=== PATIENT | female | born 1930 | race Caucasian/White ===

== ENCOUNTER 2017-04-19 20:38 | Inpatient (IN) | payer MEDICARE, OTHER ==
[~2017-04-19] VITALS: Ht 160 cm; Wt 67.5 kg
[~2017-04-19 20:38] MED LIST: AMLO-147 PO; ISOS20TA19 PO; LEVE-5 PO; LOSA50TA6 PO; MEMA10TA16 PO; RIVA20TA5 PO
--- NOTE | 2017-04-20 00:31 | ERD ---
ER Documentation Chief Complaint Chief Complaint ABNORMAL LABW-HGB HPI The patient is a 86-year-old female, presenting to the ER because of low hemoglobin that was drawn this morning. Sh was contacted by her physician who asked her to go to the ER. She has fell generalized weakness for the last 2 weeks, was otherwise she went to see her doctor this morning Dr Ahumada. She has had dark stool for the last 2 weeks intermittently, denies any hematemesis. She denies syncope, near syncope, neck pain, chest pain, dyspnea, dysuria, diarrhea. She does not smoke nor drink, use 2 L nasal cannula at night Past medical history: Left CVA, dementia, hypertension, atrial fibrillation, history of CVA Past surgical history: Cholecystectomy ROS All systems reviewed and are negative except as per history of present illness. Medications Home Meds Reported Medications Rivaroxaban* (Xarelto*) 20 Mg Tablet, 20 MG PO QHS, TAB 06/22/15 Levetiracetam* (Keppra*) 500 Mg Tablet, 500 MG PO BID, TAB GIVE AT 9AM AND 5PM 06/22/15 Isosorbide Dinitrate* (Isosorbide Dinitrate*) 20 Mg Tablet, 20 MG PO BID, TAB 06/22/15 Memantine* (Namenda*) 10 Mg Tablet, 10 MG PO DAILY, #30 TAB 06/22/15 Amlodipine Besylate* (Amlodipine Besylate*) 10 Mg Tablet, 10 MG PO DAILY, #30 TAB 06/22/15 Losartan Potassium* (Losartan Potassium*) 50 Mg Tablet, 50 MG PO DAILY, TAB 06/22/15 Allergies Allergies: Coded Allergies: hydrocortisone (Verified Allergy, Unknown, 06/22/15) Uncoded Allergies: HYDROCORTIZONE (Allergy, Unknown, 02/23/14) PMhx/Soc History of Surgery: Yes Anesthesia Reaction: Yes Hx Neurological Disorder: No Hx Respiratory Disorders: No Hx Cardiac Disorders: Yes Hx Psychiatric Problems: No Hx Miscellaneous Medical Probl: Yes Hx Alcohol Use: No Hx Substance Use: No Hx Tobacco Use: No Physical Exam Vitals Vital Signs Date Time Temp Pulse Resp B/P Pulse Ox O2 Delivery O2 Flow Rate FiO2 04/20/17 00:56 98.5 04/20/17 00:43 Nasal Cannula 2 04/20/17 00:43 97.4 91 20 114/51 95 Room Air 04/19/17 21:11 97.4 100 20 124/58 100 Physical Exam Const: No acute distress. Head: Atraumatic. Eyes: Normal Conjunctiva. ENT: Normal External Ears, Nose and Mouth. Neck: Full range of motion. No meningismus. Resp: Clear to auscultation bilaterally. Cardio: Irregularly irregular Abd: Soft, obese, normal bowel sounds, vague and diffuse abdominal tenderness Skin: No petechiae or rashes. Back: No midline or flank tenderness. Ext: Chronic skin discoloration, minimal edema Neur: Awake and alert. No focal deficit Psych: Normal Mood and Affect. Result Diagram: 04/20/175204/20/1752 Results 24 hrs Laboratory Tests Test 04/20/17 00:53 White Blood Count 6.110^3/ul Red Blood Count 1.3510^6/ul Hemoglobin 3.9g/dl Hematocrit 13.0% Mean Corpuscular Volume 96.3fl Mean Corpuscular Hemoglobin 28.9pg Mean Corpuscular Hemoglobin Concent 30.0g/dl Red Cell Distribution Width 14.3% Platelet Count 44494^3/UL Mean Platelet Volume 9.5fl Neutrophils % 56.3% Lymphocytes % 31.2% Monocytes % 11.7% Eosinophils % 0.5% Basophils % 0.0% Nucleated Red Blood Cells % 0.5/100WBC Neutrophils # 3.410^3/ul Lymphocytes # 1.910^3/ul Monocytes # 0.710^3/ul Eosinophils # 0.010^3/ul Basophils # 0.010^3/ul Nucleated Red Blood Cells # 0.010^3/ul Pathologist Review (Hematology) YES Prothrombin Time 25.2Sec Prothrombin Time Ratio 2.0 INR International Normalized Ratio 2.22 Activated Partial Thromboplast Time 41.7Sec Sodium Level 139mmol/L Potassium Level 4.5mmol/L Chloride Level 99mmol/L Carbon Dioxide Level 33mmol/L Anion Gap 12 Blood Urea Nitrogen 36mg/dl Creatinine 1.05mg/dl Glucose Level 149mg/dl Calcium Level 8.7mg/dl Total Bilirubin 0.2mg/dl Direct Bilirubin 0.00mg/dl Indirect Bilirubin 0.2mg/dl Aspartate Amino Transf (AST/SGOT) 46IU/L Alanine Aminotransferase (ALT/SGPT) 42IU/L Alkaline Phosphatase 68IU/L Troponin I 0.016ng/ml Total Protein 6.0g/dl Albumin 3.0g/dl Globulin 3.00g/dl Albumin/Globulin Ratio 1.00 Procedures/MDM Patient Name Elizabeth Alcazar Study Date 04/20/2017 1:21 AM Patient 1930 Accession No. [id number] Referring Physician Óscar Cabrera CLINICAL INDICATION: Abdominal pain. TECHNIQUE: CT scan of the abdomen and pelvis without contrast was performed on a multidetector high-resolution CT scanner. The patient was scanned without intravenous contrast. Coronal and sagittal reformatted images were obtained from the axial source images. Images were reviewed on a high-resolution PACS workstation. The total exam CTDI equals 22.94 mGy and the total exam DLP equals 1321.60 mGy-cm. DICOM images are available. One or more of the following dose reduction techniques were utilized: 1.) Automated exposure control 2.) Adjustment of the mA +/- kV according to patient's size 3.) Use of iterative reconstruction technique. COMPARISON: CT abdomen and pelvis dated 04/10/2013. FINDINGS: CT abdomen: Atelectasis at the right midaxillary posterior costophrenic angle. Otherwise, the lung bases are clear. The heart size is mildly enlarged, without pericardial thickening or effusion. The liver is normal in size and density without focal mass or intrahepatic biliary dilatation. The spleen is normal in size and homogeneous in density. The stomach is partially collapsed, but is grossly unremarkable. The pancreas as visualized is normal. The gallbladder and biliary tree are unremarkable and there is no evidence for biliary dilatation. The adrenal glands are symmetric and normal. 36 mm low attenuation lesion in the left kidney may represent a cyst or solid lesion, and attenuation is indeterminate. Recommend ultrasound examination for further evaluation to exclude nodular components or solid mass. This measured about [address] examination dated 04/10/2013. Findings most likely represent a cyst. Otherwise, the kidneys are symmetrically unremarkable as well. No renal calculus or obstructive uropathy or mass lesion is seen. The aorta is of normal caliber. Aortic vascular calcifications are present. There is no retroperitoneal lymphadenopathy. The celia hepatis region is clear. The bowel and mesentery, as visualized, are equally unremarkable. CT pelvis: The small bowel loops situated within the pelvis are unremarkable. The pelvic organs are normal. The pelvic sidewalls and inguinal regions are clear. The sigmoid colon and rectum are remarkable for sigmoid diverticulosis. No mass, lymphadenopathy, or free fluid is seen. No acute inflammation is seen. The surrounding osseous structures are remarkable for degenerative spondylosis of the spine. No osteolytic or osteoblastic lesion is detected. IMPRESSION: 1. 36 mm lesion in the left kidney may represent a nodular complex mass or solid mass, and differential considerations include a cystic structure. 2. Noncontrast attenuation of this lesion is indeterminate, and recommend ultrasound examination for further evaluation. 3. Atelectasis at the midaxillary and posterior right costophrenic angle. 4. Otherwise, no acute process in the abdomen and pelvis. RPTAT: UU Signed By: Ridge Mao Md 04/20/2017 1:56:29 AM EKG: Read by emergency physician Rate/Rhythm: Atrial Fibrillation 95 beats/min QRS, ST, T-waves: No ST elevation, nonspecific ST and T abnormality Impression: Abnormal EKG MEDICAL MAKING DECISION: The patient is a 86-year-old female, presenting with acute gastrointestinal bleeding, acute left renal mass. She was treated with 4 unit of packed red blood cell The differential diagnoses considered include but are not limited to gastritis, peptic ulcer disease, esophageal varices, Radha-Dent tear, carcinoma, polyp, hemorrhoid, fissure, diverticulosis, angiodysplasia. Critical Care: Time: 35 minutes excluding all billable procedures. Treatments/Evaluations: Close monitoring and treatment of unstable vital signs, cardiorespiratory, and neurologic status, while maintaining tight balance of fluid, respiratory, and cardiac interventions. Departure Diagnosis: Primary Impression: Acute GI bleeding Additional Impression: Left renal mass Condition: Serious Comments I discussed the findings with the patient. I discussed the patient with the on- call hospitalist Dr. Yang at 3 AM who was made aware of the lab, the treatment, the patient condition. The patient is admitted to [facility] Disclaimer: Inadvertent spelling and grammatical errors are likely due to EHR/ dictation software use and do not reflect on the overall quality of patient care. Also, please note that the electronic time recorded on this note does not necessarily reflect the actual time of the patient encounter. ÓSCAR CABRERA MD Apr 20, 2017 00:31
[2017-04-20 01:01] LABS: ABNORMAL IP MESSAGE 1; EOSINOPHILS % 0.5 % (0.0-7.0); LYMPHOCYTES # 1.9 10^3/ul (0.8-2.9); LYMPHOCYTES % 31.2 % (15.0-51.0); MEAN CORPUSCULAR HEMOGLOBIN 28.9 pg (29.0-33.0); MEAN CORPUSCULAR VOLUME 96.3 fl (82.0-101.0); MEAN PLATELET VOLUME 9.5 fl (7.4-10.4); MONOCYTE # 0.7 10^3/ul (0.3-0.9); MONOCYTES % 11.7 % (0.0-11.0); NEUTROPHIL # 3.4 10^3/ul (1.6-7.5); NEUTROPHILS % 56.3 % (39.0-77.0); NUCLEATED RED BLOOD CELLS% 0.5 /100WBC (0.0-0.0); PLATELET COUNT 174 10^3/UL (140-415); RED BLOOD COUNT 1.35 10^6/ul (4.20-5.40); RED CELL DISTRIBUTION WIDTH 14.3 % (11.5-14.5); WHITE BLOOD COUNT 6.1 10^3/ul (4.8-10.8)
[2017-04-20 01:14] LABS: HEMOGLOBIN 3.9 g/dl (12.0-16.0); POSITIVE DIFF @See below
[2017-04-20 01:16] LABS: PATH REVIEW? YES
[2017-04-20 01:21] LABS: BILIRUBIN,INDIRECT 0.2 mg/dl (0-1.1); BILIRUBIN,TOTAL 0.2 mg/dl (0.2-1.3); CALCIUM 8.7 mg/dl (8.4-10.2); CREATININE 1.05 mg/dl (0.44-1.00); POTASSIUM 4.5 mmol/L (3.5-5.1)
[2017-04-20 01:23] LABS: INR 2.22; PROTIME 25.2 Sec (11.9-14.9)
[2017-04-20 01:24] LABS: PARTIAL THROMBOPLASTIN TIME 41.7 Sec (25.0-35.0)
[2017-04-20 01:32] LABS: TROPONIN-I 0.016 ng/ml (0.00-0.12)
[2017-04-20 05:52] LABS: HEMATOCRIT 19.5 % (37.0-47.0)
[2017-04-20] MEDS ORDERED: NACL 0.9% 3 ML SYG IV SCH (06:00)
[2017-04-20] MEDS ORDERED: morphine 2 MG INJ IV PRN (06:00)
[2017-04-20] MEDS ORDERED: NITROGLYCERIN (SL) 0.4 MG TAB SL PRN (06:00)
[2017-04-20] MEDS ORDERED: ONDANSETRON 4 MG INJ IV PRN (06:00)
--- NOTE | 2017-04-20 06:54 | RADRPT ---
PROCEDURE: CT Abdomen and Pelvis without contrast. CLINICAL INDICATION: Abdominal pain. TECHNIQUE: CT scan of the abdomen and pelvis without contrast was performed on a multidetector hig h-resolution CT scanner. The patient was scanned without intravenous contrast. Coronal and sagittal reformatted images were obtained from the axial source images. Images were reviewed on a high-resol [employer] PACS workstation. The total exam CTDI equals 22.94 mGy and the total exam DLP equals 1321.60 m Gy-cm. DICOM images are available. One or more of the following dose reduction techniques were utilized: 1.) Automated exposure control 2.) Adjustment of the mA +/- kV according to patient's size 3.) Use of iterative reconstruction technique. COMPARISON: CT abdomen and pelvis dated 04/10/2013. FINDINGS: CT abdomen: Atelectasis at the right midaxillary posterior costophrenic angle. Otherwise, the lung bases are alexis ar. The heart size is mildly enlarged, without pericardial thickening or effusion. The liver is normal in size and density without focal mass or intrahepatic biliary dilatation. The spleen is normal in size and homogeneous in density. The stomach is partially collapsed, but is armond ssly unremarkable. The pancreas as visualized is normal. The gallbladder and biliary tree are unre markable and there is no evidence for biliary dilatation. The adrenal glands are symmetric and norm al. 36 mm low attenuation lesion in the left kidney may represent a cyst or solid lesion, and atten uation is indeterminate. Recommend ultrasound examination for further evaluation to exclude nodular components or solid mass. This measured about [address] examination dated 04/10/2013. Findings mos t likely represent a cyst. Otherwise, the kidneys are symmetrically unremarkable as well. No renal calculus or obstructive uropathy or mass lesion is seen. The aorta is of normal caliber. Aortic vascular calcifications are present. There is no retroperit garcia lymphadenopathy. The celia hepatis region is clear. The bowel and mesentery, as visualized, are equally unremarkable. CT pelvis: The small bowel loops situated within the pelvis are unremarkable. The pelvic organs are normal. T he pelvic sidewalls and inguinal regions are clear. The sigmoid colon and rectum are remarkable for sigmoid diverticulosis. No mass, lymphadenopathy, or free fluid is seen. No acute inflammation is seen. The surrounding osseous structures are remarkable for degenerative spondylosis of the spine. No ost eolytic or osteoblastic lesion is detected. IMPRESSION: 1. 36 mm lesion in the left kidney may represent a nodular complex mass or solid mass, and different ial considerations include a cystic structure. 2. Noncontrast attenuation of this lesion is indeterminate, and recommend ultrasound examination for further evaluation. 3. Atelectasis at the midaxillary and posterior right costophrenic angle. 4. Otherwise, no acute process in the abdomen and pelvis. RPTAT: UU Physician Wagner Date Time Electronically viewed and signed by Physician Wagner on 04/20/2017 01:56 RS/
--- NOTE | 2017-04-20 08:42 | HP ---
Date/Time of Note Date/Time of Note DATE: 04/20/17 TIME: 08:37 Assessment/Plan VTE Prophylaxis VTE Prophylaxis Intervention: SCD's Assessment/Plan Assessment/Plan ASSESSMENT 86-year-old female with a history of hypertension, seizure, dementia, CVA, A- fib on Xarelto with a 2 weeks history of dark stool was found to be severely anemic with a hemoglobin of 3.9. PLAN -Continue blood transfusion -Monitor H&H frequently -GI consult -Will obviously hold Xarelto -will keep n.p.o. with IV fluid. Switch some of her medications including antiseizure medication to IV HPI/ROS Admit Date/Time Admit Date/Time Hx of Present Illness This is an 86-year-old female with a history of hypertension, seizure, dementia , CVA, A-fib on Xarelto who presented to the ER after he was sent by PCP for anemia. Patient has been having dark stools for about 2 weeks. When she presented to the ER she was found to have a hemoglobin of 3.9 with MCV of 96. Her creatinine is 1.05, BUN 36, bicarb 33, INR 2.22 and PTT of 41. Her initial vitals were blood pressure of 124/58, heart rate 100, respiratory 22, oxygen saturation 100% and she was afebrile. PMH/Family/Social Social History Smoking Status: Never smoker Exam/Review of Systems Vital Signs Vitals Vital Signs Date Time Temp Pulse Resp B/P Pulse Ox O2 Delivery O2 Flow Rate FiO2 04/20/17 06:30 98.1 80 18 111/62 98 Room Air 04/20/17 00:43 2 Exam Constitutional: other (apears weak) Head: atraumatic, normocephalic Eyes: PERRL Respiratory: clear to auscultation Cardiovascular: nl pulses, regular rate and rhythm Gastrointestinal: soft, tender Extremities: normal pulses Labs Result Diagram: 04/20/17 0513 04/20/17 0053 Medications Medications Current Medications Dextrose/Sodium Chloride (D5-1/2ns) 1,000 ml @ 100 mls/hr Q10H IV ; Start 04/20 at 05:49 Ondansetron HCl (Zofran Inj) 4 mg Q6H PRN IV NAUSEA AND/OR VOMITING; Start 04/20/17 at 06:00 Nitroglycerin (Nitroglycerin (Sl Tab) 0.4 Mg) 1 tab Q5M PRN SL CHEST PAIN; Start 04/20/17 at 06:00 Morphine Sulfate (morphine) 2 mg Q4H PRN IV PAIN LEVEL 7-10; Start 04/20/17 at 06:00 ALBIN ALEXANDRA MD Apr 20, 2017 08:42
[2017-04-20 10:35] VITALS: TEMP 98.1
[2017-04-20] MEDS ORDERED: LOSA1TAB28 PO (10:58)
[2017-04-20] MEDS ORDERED: VALS160T20 PO (10:59)
[2017-04-20 11:59] LABS: BASOPHILS % 0.4 % (0.0-2.0); EOSINOPHILS % 0.4 % (0.0-7.0); HEMATOCRIT 23.9 % (37.0-47.0); HEMOGLOBIN 7.9 g/dl (12.0-16.0); LYMPHOCYTES # 1.5 10^3/ul (0.8-2.9); LYMPHOCYTES % 26.5 % (15.0-51.0); MEAN CORPUSCULAR HEMOGLOBIN 28.6 pg (29.0-33.0); MEAN CORPUSCULAR HGB CONC 33.1 g/dl (32.0-37.0); MEAN CORPUSCULAR VOLUME 86.6 fl (82.0-101.0); MEAN PLATELET VOLUME 9.3 fl (7.4-10.4); MONOCYTE # 0.9 10^3/ul (0.3-0.9); MONOCYTES % 15.5 % (0.0-11.0); NEUTROPHIL # 3.1 10^3/ul (1.6-7.5); NEUTROPHILS % 56.5 % (39.0-77.0); NUCLEATED RED BLOOD CELLS # 0.1 10^3/ul (0.0-0.0); NUCLEATED RED BLOOD CELLS% 0.9 /100WBC (0.0-0.0); PLATELET COUNT 140 10^3/UL (140-415); RED BLOOD COUNT 2.76 10^6/ul (4.20-5.40); RED CELL DISTRIBUTION WIDTH 18.4 % (11.5-14.5); WHITE BLOOD COUNT 5.5 10^3/ul (4.8-10.8)
[2017-04-20 12:23] LABS: IRON 281 ug/dl (35-150)
[2017-04-20 12:25] LABS: ALBUMIN/GLOBULIN RATIO 1.03; BILIRUBIN,INDIRECT 2.1 mg/dl (0-1.1); BILIRUBIN,TOTAL 2.1 mg/dl (0.2-1.3); CALCIUM 8.3 mg/dl (8.4-10.2); CREATININE 1.05 mg/dl (0.44-1.00); MAGNESIUM 2.3 mg/dl (1.7-2.5); POTASSIUM 4.7 mmol/L (3.5-5.1); TOTAL PROTEIN 5.9 g/dl (6.1-8.1)
[2017-04-20 12:33] LABS: TOTAL IRON BINDING CAPACITY 353 ug/dl (241-421)
[2017-04-20] MEDS: DEXTROSE 5%-0.45% NACL 1,000 ML IV SCH ×3 (12:51→23:29)
[2017-04-20 12:57] LABS: FERRITIN 16.7 ng/ml (11.1-264.0)
--- NOTE | 2017-04-20 16:48 | CONS ---
Date/Time of Note Date/Time of Note DATE: 04/20/17 TIME: 16:14 Assessment/Plan Assessment/Plan Chief Complaint/Hosp Course Assessment: Anemia High INR Rule out GI bleed Atrial fibrillation Hypertension Dementia History of CVA Plan: EGD tomorrow Hold Xarelto Start Protonix 40 mg BID Monitor H&H transfuse for hemoglobin less than 7.5 2 units of FFP Consultation performed in collaboration with Subjective: Patient is asleep in bed, responsive to stimulation, grimacing on palpation of the stomach. Daughter at the bedside interviewed and explained the plan of treatment. Risks and benefits of procedure have been explained. Patient's daughter is agreeable to the procedure. The laboratory data has been reviewed. CT of the abdomen was positive for diverticulosis, listhesis, and right renal cyst. Current hemoglobin is 7.9. Will continue close monitoring. Nursing staff was updated on the treatment plan. Problems: Consultation Date/Type/Reason Admit Date/Time Date of Consultation: Apr 20, 2017 Type of Consultation: GI Reason for Consultation Sever anemia Hx of Present Illness This is an 86-year-old [place] Citizen female presents in ED with hemoglobin of 3.9. History obtained from her daughter who is at the bedside she seems to be a reliable historian. According to daughter her mom has been feeling progressively weak for the past 2 weeks. In addition she has been having dark green stools. Patient is currently on hospice with a nurse visiting every day. Upon daughter's request blood was collected along with the stool sample for testing by hospice nurse. Hemoglobin was found to be critically low and the patient was brought to ED. her medical history is significant for chronic A. fib , hypertension, dementia and history of massive stroke in 2013 that left her with left sided weakness. Patient has a history of chronic constipation and severe hemorrhoids. Patient had cholecystectomy in 2009 and colonoscopy with polypectomy the same year. The plan is to do an endoscopy to evaluate for upper GI bleeding. Will hold Xarelto, and recheck INR tomorrow. Plan EGD for tomorrow. Genitourinary: no complaints (See HPI) Past Medical History History of CVA, hypertension, dementia, A. fib, hemorrhoids Past Surgical History Laparoscopic cholecystectomy 2009, right wrist ORIF, cataract surgery, surgery for varicose veins Family History Significant Family History: heart disease (Mom and sister had CVA) Social History Lives with daughter Alcohol Use: none Smoking Status: Never smoker Drug Use: none Exam/Review of Systems Vital Signs Vitals Vital Signs Date Time Temp Pulse Resp B/P Pulse Ox O2 Delivery O2 Flow Rate FiO2 04/20/17 14:04 75 14 107/66 99 Nasal Cannula 2.0 04/20/17 10:35 98.1 Exam PHYSICAL EXAMINATION: GENERAL: Well developed, well nourished, alert & oriented x 3, in no acute distress SKIN: No lesions, no stigmata chronic liver disease, no evidence of bleeding diathesis, bronze colored skin below the knees bilaterally LYMPHATIC: No palpable lymphadenopathy. HEAD: Normocephalic, atraumatic, no tenderness. EYES: Pupils equal reactive to light and accommodation, full extraocular movements, sclera clear, non-icteric, no discharge. EARS/NOSE AND THROAT: Ears normal, nose normal, oropharynx normal, oral membranes well hydrated without lesions. NECK: Supple, no masses, thyroid normal, JVP within normal limits, carotids normal without bruits. CHEST: Inspection within normal limits. CARDIOVASCULAR: Heart: Regular rate and rhythm, no murmurs, gallops or rubs. Peripheral pulses present within normal limits, no cyanosis, clubbing or edemas. No pulsatile abdominal mass RESPIRATORY: Lungs clear to auscultation and percussion, no wheezing, no rubs GASTROINTESTINAL AND LIVER: Abdomen: Soft, mild generalized tenderness, mildly distended, no hernias, no masses, no organomegaly, no ascites, no guarding, no rebound tenderness, normoactive bowel sounds. Rectal: Deferred. GENITOURINARY: Female genitalia within normal limits.] EXTREMITIES: No cyanosis, clubbing or edema. Results Result Diagram: 04/20/17 1121 04/20/17 1121 Results 24 hrs Laboratory Tests Test 04/20/17 00:53 04/20/17 05:13 04/20/17 11:21 White Blood Count 6.1 # 5.5 Red Blood Count 1.35 #L 2.76 #L Hemoglobin 3.9 #*L 6.0 #*L 7.9 #L Hematocrit 13.0 #L 19.5 #L 23.9 #L Mean Corpuscular Volume 96.3 86.6 Mean Corpuscular Hemoglobin 28.9 L 28.6 L Mean Corpuscular Hemoglobin Concent 30.0 L 33.1 Red Cell Distribution Width 14.3 18.4 #H Platelet Count 174 140 Mean Platelet Volume 9.5 9.3 Neutrophils % 56.3 56.5 Lymphocytes % 31.2 26.5 Monocytes % 11.7 H 15.5 H Eosinophils % 0.5 0.4 Basophils % 0.0 0.4 Nucleated Red Blood Cells % 0.5 H 0.9 H Neutrophils # 3.4 3.1 Lymphocytes # 1.9 1.5 Monocytes # 0.7 0.9 Eosinophils # 0.0 0.0 Basophils # 0.0 0.0 Nucleated Red Blood Cells # 0.0 0.1 H Pathologist Review (Hematology) YES Prothrombin Time 25.2 H Prothrombin Time Ratio 2.0 INR International Normalized Ratio 2.22 Activated Partial Thromboplast Time 41.7 H Sodium Level 139 141 Potassium Level 4.5 4.7 Chloride Level 99 101 Carbon Dioxide Level 33 H 35 H Anion Gap 12 10 Blood Urea Nitrogen 36 H 36 H Creatinine 1.05 H 1.05 H Glucose Level 149 131 Calcium Level 8.7 8.3 L Total Bilirubin 0.2 2.1 H Direct Bilirubin 0.00 0.00 Indirect Bilirubin 0.2 2.1 H Aspartate Amino Transf (AST/SGOT) 46 50 H Alanine Aminotransferase (ALT/SGPT) 42 45 Alkaline Phosphatase 68 60 Troponin I 0.016 Total Protein 6.0 L 5.9 L Albumin 3.0 L 3.0 L Globulin 3.00 2.90 Albumin/Globulin Ratio 1.00 1.03 Magnesium Level 2.3 Iron Level 281 H Total Iron Binding Capacity 353 Percent Iron Saturation 80 H Ferritin 16.7 Medications Medications Current Medications Dextrose/Sodium Chloride (D5-1/2ns) 1,000 ml @ 100 mls/hr Q10H IV Last administered on 04/20/17t 12:51; Admin Dose 100 MLS/HR; Start 04/20/17 at 05:49 Ondansetron HCl (Zofran Inj) 4 mg Q6H PRN IV NAUSEA AND/OR VOMITING; Start 04/20/17 at 06:00 Nitroglycerin (Nitroglycerin (Sl Tab) 0.4 Mg) 1 tab Q5M PRN SL CHEST PAIN; Start 04/20/17 at 06:00 Morphine Sulfate (morphine) 2 mg Q4H PRN IV PAIN LEVEL 7-10; Start 04/20/17 at 06:00 Copies To: CC: CT BARNETT MD, ANASTASIA NP Apr 20, 2017 16:24
[2017-04-20] MEDS: PANTOPRAZOLE 40 MG INJ IV SCH ×2 (17:00→18:14)
[2017-04-20 17:17] LABS: PATH REVIEW CH
[2017-04-20 17:49] VITALS: BP 130/75; RESP 18
[2017-04-20 17:57] VITALS: Ht 160 cm; Wt 67.5 kg
[2017-04-20 18:01] VITALS: PULSE 75
[2017-04-20] MEDS ORDERED: INFLUENZA VIRUS VACCINE 0.5 ML (DISPENSING) IM* ONE (19:30)
[2017-04-20 20:00] VITALS: BP 117/79; RESP 18
[2017-04-20 20:20] VITALS: PULSE 84
[2017-04-21] VITALS (23 sets, daily range): BP systolic 108–163; BP diastolic 59–96; PULSE 74–97; RESP 16–21
[2017-04-21 07:33] LABS: BASOPHILS % 0.2 % (0.0-2.0); EOSINOPHILS # 0.1 10^3/ul (0.0-0.5); EOSINOPHILS % 1.1 % (0.0-7.0); HEMATOCRIT 24.6 % (37.0-47.0); HEMOGLOBIN 7.8 g/dl (12.0-16.0); LYMPHOCYTES % 34.9 % (15.0-51.0); MEAN CORPUSCULAR HEMOGLOBIN 27.9 pg (29.0-33.0); MEAN CORPUSCULAR HGB CONC 31.7 g/dl (32.0-37.0); MEAN CORPUSCULAR VOLUME 87.9 fl (82.0-101.0); MONOCYTE # 0.9 10^3/ul (0.3-0.9); MONOCYTES % 15.6 % (0.0-11.0); NEUTROPHIL # 2.7 10^3/ul (1.6-7.5); NEUTROPHILS % 47.8 % (39.0-77.0); NUCLEATED RED BLOOD CELLS # 0.1 10^3/ul (0.0-0.0); NUCLEATED RED BLOOD CELLS% 1.3 /100WBC (0.0-0.0); PLATELET COUNT 135 10^3/UL (140-415); RED CELL DISTRIBUTION WIDTH 18.6 % (11.5-14.5); WHITE BLOOD COUNT 5.6 10^3/ul (4.8-10.8)
[2017-04-21] MEDS: DEXTROSE 5%-0.45% NACL 1,000 ML IV SCH ×2 (07:37→21:49)
[2017-04-21 08:07] LABS: CALCIUM 8.2 mg/dl (8.4-10.2); CREATININE 0.92 mg/dl (0.44-1.00); MAGNESIUM 2.1 mg/dl (1.7-2.5); PHOSPHORUS 3.2 mg/dl (2.5-4.9); POTASSIUM 3.9 mmol/L (3.5-5.1)
[2017-04-21] MEDS: PANTOPRAZOLE 40 MG INJ IV SCH ×2 (10:00→21:30)
--- NOTE | 2017-04-21 12:33 | HPN ---
Date/Time of Note Date/Time of Note DATE: 04/21/17 TIME: 12:33 Interval H&P Admission Note Pt. seen H&P reviewed: No system changes CT BARNETT MD Apr 21, 2017 12:33
[2017-04-21] MEDS ORDERED: MIDAZOLAM 1 MG/ML 2 ML INJ ONE (12:40)
[2017-04-21] MEDS ORDERED: PROPOFOL 20 ML ONE (12:40)
[2017-04-21] MEDS ORDERED: LIDOCAINE 2% (SDV) 5 ML INJ ONE (12:40)
[2017-04-21] MEDS ORDERED: FLUMAZENIL 0.5 MG INJ ONE (12:49)
--- NOTE | 2017-04-21 12:57 | OPPN ---
Date/Time of Note Date/Time of Note DATE: 04/21/17 TIME: 12:52 Proc Note GI Procedure Date 04/21/17 Indication: other (Anemia) Pre-procedure Diagnosis Anemia Post-procedure Diagnosis Impression: Moderate distal esophagitis. Moderate gastritis. Limited biopsies obtained to rule out H. pylori infection. Otherwise negative EGD Plan: PPI therapy Monitor H&H, PT and PTT Gently prepare for colonoscopy on Sunday . Procedure Performed: Endoscopy (Biopsies) Surgeon CT BRANETT MD See signature line Station Mechanic none Anesthesia Type: MAC Anesthesiologist: SEAMUS ACE DO Tourniquet Time none EBL none Transfusion required none Biopsy 1: Gastric antrum Grafts/Implants none Tubes/Drains none Complication(s) none Disposition: PACU Procedure Description After informed consent, with the patient/relatives understanding the procedure, its indications, potential risks and complications, including but not limited to : allergic reaction, bleeding, perforation or infection, and after all pertinent questions were answered to the patients satisfaction, the patient/ relatives signed witnessed informed consent. Following this, premedication was administered slowly IV push under careful cardiovascular and respiratory monitoring with pulse oximetry, automatic blood pressure, and environmental monitoring specialist. Once the sedative effect was achieved the patient was place in the left lateral decubitus, the panendoscope was introduced and advanced under visual control. Careful examination of the upper gastrointestinal tract, both on insertion as well as withdrawal of the instrument disclosing the following findings: ESOPHAGUS: the mucosa of the entire esophagus was carefully examined and showed the following findings: There is moderate erythema of the mucosa at the esophagogastric junction. Otherwise the mucosa appears within normal limits. There is no evidence of varices, neoplasm, or stricture. No Hiatal Hernia identified. STOMACH: Upon entrance to the stomach air was insufflated, the gastric zarate distended normally. The mucosa of the fundus, body and antrum of the stomach was carefully examined both head-on and on retroflexion, and showed the following findings: There is moderate erythema and edema the mucosa of the body and antrum of the stomach. No bleeding sites identified. Single biopsy was obtained to rule out H. pylori infection. Otherwise the mucosa appears within normal limits with no abnormalities. There is no evidence of ulcers or neoplasm. PYLORUS: The pylorus was carefully examined and showed the following findings: the pylorus appears patent and within normal limits, with no evidence of gastric outlet obstruction. DUODENUM: The duodenal mucosa was carefully examined in the duodenal bulb as well as the second portion of the duodenum and showed the following findings: the mucosa appears unremarkable with no evidence of duodenitis, ulcer or neoplasm. Copies To: CC: CT BARNETT MD, MORDO MD Apr 21, 2017 12:57
--- NOTE | 2017-04-21 14:14 | PN ---
Date/Time of Note Date/Time of Note DATE: 04/21/17 TIME: 14:08 Assessment/Plan VTE Prophylaxis VTE Prophylaxis Intervention: SCD's Lines/Catheters IV Catheter Type (from Nrsg): Peripheral IV Assessment/Plan Chief Complaint/Hosp Course 1. Severe anemia secondary to GI bleed Status post 4 units packed red blood cells GI consultation appreciated, EGD today showed moderate distal esophagitis and gastritis, plan is to continue PPI and prepare for colonoscopy Sunday Continue to hold home Xarelto 2. Suprapubic pain secondary to bladder distention from likely neurogenic bladder Servin catheter to be placed 3. History of A. fib Hold Xarelto 4. Dementia Hold home p.o. meds 5. History of seizures Continue home Keppra but will be given as an IV 6. History of hypertension Hold home meds secondary to hypotension Prophylaxis: SCDs Problems: Subjective 24 Hr Interval Summary Constitutional: disoriented Exam/Review of Systems Vital Signs Vitals Vital Signs Date Time Temp Pulse Resp B/P Pulse Ox O2 Delivery O2 Flow Rate FiO2 04/21/17 13:45 78 17 109/96 99 Nasal Cannula 04/21/17 13:01 98.2 04/21/17 12:17 3.0 Intake and Output 04/20/17 04/20/17 04/21/17 15:00 23:00 07:00 Intake Total 1400 ml 240 ml Output Total 200 ml Balance 1200 ml 240 ml Exam Constitutional: distress Psych: confusion Respiratory: clear to auscultation Cardiovascular: regular rate and rhythm Gastrointestinal: soft, No distended Musculoskeletal: No nl extremities to inspection Results Result Diagram: 04/21/17 0701 04/21/17 0701 Results 24 hrs Laboratory Tests Test 04/21/17 07:01 White Blood Count 5.6 Red Blood Count 2.80 L Hemoglobin 7.8 L Hematocrit 24.6 L Mean Corpuscular Volume 87.9 Mean Corpuscular Hemoglobin 27.9 L Mean Corpuscular Hemoglobin Concent 31.7 L Red Cell Distribution Width 18.6 H Platelet Count 135 L Mean Platelet Volume 10.0 Neutrophils % 47.8 Lymphocytes % 34.9 Monocytes % 15.6 H Eosinophils % 1.1 Basophils % 0.2 Nucleated Red Blood Cells % 1.3 H Neutrophils # 2.7 Lymphocytes # 2.0 Monocytes # 0.9 Eosinophils # 0.1 Basophils # 0.0 Nucleated Red Blood Cells # 0.1 H Sodium Level 142 Potassium Level 3.9 Chloride Level 101 Carbon Dioxide Level 34 H Anion Gap 11 Blood Urea Nitrogen 28 H Creatinine 0.92 Glucose Level 126 Calcium Level 8.2 L Phosphorus Level 3.2 Magnesium Level 2.1 Medications Medications Current Medications Dextrose/Sodium Chloride (D5-1/2ns) 1,000 ml @ 100 mls/hr Q10H IV Last administered on 04/21/17 07:37; Admin Dose 100 MLS/HR; Start 04/20/17 at 05:49 Ondansetron HCl (Zofran Inj) 4 mg Q6H PRN IV NAUSEA AND/OR VOMITING; Start 04/20/17 at 06:00 Nitroglycerin (Nitroglycerin (Sl Tab) 0.4 Mg) 1 tab Q5M PRN SL CHEST PAIN; Start 04/20/17 at 06:00 Morphine Sulfate (morphine) 2 mg Q4H PRN IV PAIN LEVEL 7-10; Start 04/20/17 at 06:00 Pantoprazole (Protonix Iv) 40 mg BID IV Last administered on 04/21/17 10:00; Admin Dose 40 MG; Start 04/20/17 at 17:00 Lactulose (Enulose) 40 gm Q2 PO ; Start 04/21/17 at 13:00; Stop 04/21/17 at 17: 01 DONIS MCDANIEL Apr 21, 2017 14:14
[2017-04-21] MEDS: LACTULOSE 30ML CUP PO SCH ×3 (14:57→17:34)
[2017-04-21 16:26] LABS: HEMATOCRIT 23.6 % (37.0-47.0); HEMOGLOBIN 7.5 g/dl (12.0-16.0)
[2017-04-21] MEDS ORDERED: ALBUTEROL/IPRATROPIUM (NEB) 3 ML AMP HHN PRN (18:30)
[2017-04-21 19:16] LABS: BASOPHILS % 0.3 % (0.0-2.0); EOSINOPHILS # 0.1 10^3/ul (0.0-0.5); EOSINOPHILS % 0.8 % (0.0-7.0); HEMATOCRIT 25.4 % (37.0-47.0); LYMPHOCYTES # 1.5 10^3/ul (0.8-2.9); LYMPHOCYTES % 23.9 % (15.0-51.0); MEAN CORPUSCULAR HEMOGLOBIN 28.1 pg (29.0-33.0); MEAN CORPUSCULAR HGB CONC 31.5 g/dl (32.0-37.0); MEAN CORPUSCULAR VOLUME 89.1 fl (82.0-101.0); MONOCYTE # 0.9 10^3/ul (0.3-0.9); MONOCYTES % 15.2 % (0.0-11.0); NEUTROPHIL # 3.6 10^3/ul (1.6-7.5); NEUTROPHILS % 59.5 % (39.0-77.0); NUCLEATED RED BLOOD CELLS% 0.5 /100WBC (0.0-0.0); PLATELET COUNT 157 10^3/UL (140-415); RED BLOOD COUNT 2.85 10^6/ul (4.20-5.40); RED CELL DISTRIBUTION WIDTH 17.9 % (11.5-14.5); WHITE BLOOD COUNT 6.1 10^3/ul (4.8-10.8)
[2017-04-21 19:38] LABS: ALBUMIN 3.5 g/dl (3.3-4.9); ALBUMIN/GLOBULIN RATIO 1.09; BILIRUBIN,INDIRECT 1.3 mg/dl (0-1.1); BILIRUBIN,TOTAL 1.3 mg/dl (0.2-1.3); CALCIUM 8.5 mg/dl (8.4-10.2); CREATININE 0.85 mg/dl (0.44-1.00); POTASSIUM 4.2 mmol/L (3.5-5.1); TOTAL PROTEIN 6.7 g/dl (6.1-8.1)
[2017-04-21 20:38] LABS: AADO2 Arterial 35.1 mmHg (7.0-24.0); Arterial Base Excess 2.4 mmol/L (-3.0-3); Arterial COHb 0.7 % (0.0-3.0); Arterial HCO3 27.3 mmol/L (22.0-26.0); Arterial MetHb 0.1 % (0.0-1.5); Arterial Total Hemglobin 9.1 g/dl (12.0-18.0); MODE NASAL CANNULA
[2017-04-21 21:17] LABS: HEMATOCRIT 25.2 % (37.0-47.0); HEMOGLOBIN 7.9 g/dl (12.0-16.0)
[2017-04-21] MEDS: LEVETIRACETAM 500 MG (PMX) 100 ML IVPB SCH (21:30)
[2017-04-22] VITALS (12 sets, daily range): BP systolic 111–145; BP diastolic 58–75; PULSE 80–110; RESP 16–20
[2017-04-22 06:16] LABS: HEMATOCRIT 23.6 % (37.0-47.0); HEMOGLOBIN 7.4 g/dl (12.0-16.0)
[2017-04-22 06:35] LABS: INR 1.1; PROTIME 14.4 Sec (11.9-14.9); PT RATIO 1.1
[2017-04-22 06:36] LABS: PARTIAL THROMBOPLASTIN TIME 33.6 Sec (25.0-35.0)
[2017-04-22 06:54] LABS: CALCIUM 8.3 mg/dl (8.4-10.2); CREATININE 0.87 mg/dl (0.44-1.00)
[2017-04-22] MEDS: DEXTROSE 5%-0.45% NACL 1,000 ML IV SCH (07:49)
[2017-04-22] MEDS: PANTOPRAZOLE 40 MG INJ IV SCH ×2 (08:34→21:01)
[2017-04-22] MEDS: LEVETIRACETAM 500 MG (PMX) 100 ML IVPB SCH ×2 (08:34→21:01)
--- NOTE | 2017-04-22 09:11 | RADRPT ---
PROCEDURE: XR Chest. CLINICAL INDICATION: Dyspnea and chest pain TECHNIQUE: AP Portable chest. COMPARISON: 06/22/2015 chest x-ray FINDINGS: The soft tissues and bones are remarkable for generalized osteopenia , thoracic spondylosis, bilater al acromioclavicular osteoarthropathy is present. Mild bilateral interstitial edema is present. Mode rate cardiomegaly and vascular calcifications of the thoracic aorta are noted. Mild blunting of the right costophrenic angle is present. A small right pleural effusion is present. No pneumothorax is p resent. IMPRESSION: 1. Mild cardiogenic pulmonary venous hypertension. 2. Moderate cardiomegaly and atherosclerotic vascular disease 3. Generalized osteopenia, thoracic spondylosis and bilateral acromioclavicular osteoarthropathy RPTAT: HDC .Margi Pennington MD, Date Time Electronically viewed and signed by .Margi Pennington MD, on 04/22/2017 09:11 .C/
--- NOTE | 2017-04-22 12:08 | PN ---
Date/Time of Note Date/Time of Note DATE: 04/22/17 TIME: 11:53 Assessment/Plan VTE Prophylaxis VTE Prophylaxis Intervention: SCD's Lines/Catheters IV C[facility]ter Type (from [facility]): Peripheral IV Urinary Cath still in place: Yes Reason Cath still needed: other (indicate) (monitor out-put) Assessment/Plan Chief Complaint/Hosp Course Assessment: Anemia EGD 04/21/17 Impression: Moderate distal esophagitis. Moderate gastritis. Limited biopsies obtained to rule out H. pylori infection. Otherwise negative EGD Atrial fibrillation- on ACT with elevated INR- held now has improved Hypertension Dementia History of CVA Plan: Hold Xarelto Continue PPI therapy Monitor H&H, PT and PTT Transfuse as needed Gently prepare for colonoscopy on tomorrow Patient seen in collaboration with Subjective: Course reviewed with nursing staff Patient interviewed and examined All labs, imaging and other results reviewed The patient remains anemic, PT/INR have improved, will plan for colonoscopy tomorrow- prep gently, continue to monitor H/H transfuse an needed. Discussed plan with family who agree. Discussed with nurse continue to monitor for fluid overload. PHYSICAL EXAMINATION: GENERAL: Well developed, well nourished, in no acute distress SKIN: No lesions, no stigmata chronic liver disease, no evidence of bleeding diathesis, bronze colored skin below the knees bilaterally LYMPHATIC: No palpable lymphadenopathy. HEAD: Normocephalic, atraumatic, no tenderness. EYES: Pupils equal reactive to light and accommodation, full extraocular movements, sclera clear, non-icteric, no discharge. EARS/NOSE AND THROAT: Ears normal, nose normal, oropharynx normal, oral membranes well hydrated without lesions. NECK: Supple, no masses, thyroid normal, JVP within normal limits, carotids normal without bruits. CHEST: Inspection within normal limits. CARDIOVASCULAR: Heart: Regular rate and rhythm, no murmurs, gallops or rubs. Peripheral pulses present within normal limits, no cyanosis, clubbing or edemas. No pulsatile abdominal mass RESPIRATORY: Lungs clear to auscultation and percussion, no wheezing, no rubs GASTROINTESTINAL AND LIVER: Abdomen: Soft, mild generalized tenderness, mildly distended, no hernias, no masses, no organomegaly, no ascites, no guarding, no rebound tenderness, normoactive bowel sounds. Rectal: Deferred. GENITOURINARY: Female genitalia within normal limits. EXTREMITIES: No cyanosis, clubbing or edema. Problems: Exam/Review of Systems Vital Signs Vitals Vital Signs Date Time Temp Pulse Resp B/P Pulse Ox O2 Delivery O2 Flow Rate FiO2 04/22/17 11:48 98.5 92 17 136/75 96 04/22/17 07:27 Nasal Cannula 2.0 Intake and Output 04/21/17 04/21/17 04/22/17 14:59 22:59 06:59 Intake Total 740 ml 340 ml 200 ml Output Total 950 ml 750 ml Balance 740 ml -610 ml -550 ml Results Result Diagram: 04/22/17 0542 04/22/17 0542 Results 24 hrs Laboratory Tests Test 04/21/17 16:12 04/21/17 18:02 04/21/17 18:45 04/21/17 21:10 Hemoglobin 7.5 L 8.0 L 7.9 L Hematocrit 23.6 L 25.4 L 25.2 L Blood Gas Specimen Source Blood arterial Arterial Blood Date Drawn 04/21/2017 8:20:23 PM Arterial Blood pH (Temp corrected) 7.409 Arterial Blood pCO2 (Temp correct) 44.2 Arterial Blood pO2 (Temp corrected) 83.4 Arterial Blood HCO3 27.3 H Arterial Blood Base Excess 2.4 Arterial Blood Oxygen Saturation 95.8 Ron Test N/A Arterial Blood Gas Puncture Site Right Brachial Arterial Blood Carboxyhemoglobin 0.7 Arterial Blood Methemoglobin 0.1 Blood Gas A-a O2 Differential 35.1 H Oxyhemoglobin Percent 95.0 Total Hemoglobin 9.1 L Blood Gas Temperature 37.0 Blood Gas Modality NASAL CANNULA FiO2 24.0 Blood Gas Notified Whom UP Blood Gas Notified Time 04/21/2017 8:38:09 PM White Blood Count 6.1 Red Blood Count 2.85 L Mean Corpuscular Volume 89.1 Mean Corpuscular Hemoglobin 28.1 L Mean Corpuscular Hemoglobin Concent 31.5 L Red Cell Distribution Width 17.9 H Platelet Count 157 Mean Platelet Volume 10.0 Neutrophils % 59.5 Lymphocytes % 23.9 Monocytes % 15.2 H Eosinophils % 0.8 Basophils % 0.3 Nucleated Red Blood Cells % 0.5 H Neutrophils # 3.6 Lymphocytes # 1.5 Monocytes # 0.9 Eosinophils # 0.1 Basophils # 0.0 Nucleated Red Blood Cells # 0.0 Sodium Level 144 Potassium Level 4.2 Chloride Level 102 Carbon Dioxide Level 35 H Anion Gap 11 Blood Urea Nitrogen 25 H Creatinine 0.85 Glucose Level 131 Calcium Level 8.5 Total Bilirubin 1.3 Direct Bilirubin 0.00 Indirect Bilirubin 1.3 H Aspartate Amino Transf (AST/SGOT) 61 H Alanine Aminotransferase (ALT/SGPT) 51 Alkaline Phosphatase 74 B-Type Natriuretic Peptide 632 H Total Protein 6.7 Albumin 3.5 Globulin 3.20 Albumin/Globulin Ratio 1.09 Test 04/22/17 05:42 04/22/17 06:28 Hemoglobin 7.4 L Hematocrit 23.6 L Prothrombin Time 14.4 # Prothrombin Time Ratio 1.1 INR International Normalized Ratio 1.10 Activated Partial Thromboplast Time 33.6 Sodium Level 146 H Potassium Level 4.0 Chloride Level 105 Carbon Dioxide Level 32 H Anion Gap 13 Blood Urea Nitrogen 22 H Creatinine 0.87 Glucose Level 127 Calcium Level 8.3 L Lab Scanned Report BLOOD TRANSFUSION Medications Medications Current Medications Dextrose/Sodium Chloride (D5-1/2ns) 1,000 ml @ 100 mls/hr Q10H IV Last administered on 04/21/17 07:37; Admin Dose 100 MLS/HR; Start 04/20/17 at 05:49 ; Status Future Hold Ondansetron HCl (Zofran Inj) 4 mg Q6H PRN IV NAUSEA AND/OR VOMITING; Start 04/20/17 at 06:00 Nitroglycerin (Nitroglycerin (Sl Tab) 0.4 Mg) 1 tab Q5M PRN SL CHEST PAIN; Start 04/20/17 at 06:00 Morphine Sulfate (morphine) 2 mg Q4H PRN IV PAIN LEVEL 7-10; Start 04/20/17 at 06:00 Pantoprazole 40 mg 40 mg BID IV Last administered on 04/22/17 08:34; Admin Dose 40 MG; Start 04/20/17 at 17:00 Levetiracetam (Keppra 500 Mg/ 100ml (Pmx)) 100 ml @ 400 mls/hr Q12 IVPB Last administered on 04/22/17 08:34; Admin Dose 400 MLS/HR; Start 04/21/17 at 21:00 PRIMO SEWELL Apr 22, 2017 12:06
[2017-04-22] MEDS ORDERED: BISACODYL (EC) 5 MG TAB PO ONE (12:30)
[2017-04-22 13:44] LABS: HEMATOCRIT 24.1 % (37.0-47.0); HEMOGLOBIN 7.5 g/dl (12.0-16.0)
--- NOTE | 2017-04-22 16:56 | CONS ---
Date/Time of Note Date/Time of Note DATE: 04/22/17 TIME: 16:39 Assessment/Plan Assessment/Plan Chief Complaint/Hosp Course 86-year-old female was sent to the hospital by her primary care physician because of severe anemia. The patient already received 5 units of blood, she underwent EGD and is going to have a colonoscopy tomorrow. She was found to be in urinary retention and Servin catheter was put in. Pelvic exam reveals no mass no discharge and no impaction. For now we will keep the Servin catheter in till she is done was the GI workup then depending on the findings we will decide if any urological testing or procedure is needed Problems: Consultation Date/Type/Reason Admit Date/Time Date of Consultation: Apr 22, 2017 Type of Consultation: Urology Reason for Consultation Urinary retention Hx of Present Illness 86-year-old female was admitted to the hospital because of severe anemia She has a history of hypertension, dementia, CVA, A-fib on Xarelto . She was sent by PCP for anemia. Patient has been having dark stools for about 2 weeks. When she presented to the ER she was found to have a hemoglobin of 3.9 with MCV of 96. Her creatinine is 1.05, BUN 36, bicarb 33, INR 2.22 The family stated that she never had seizure but she is on seizure medication because of her stroke. The stroke happened 2 years ago She never had problem urinating. She lives at home with her daughter. she is not ambulatory by herself however she tells her family when she wants to urinate and they help her to the bedside commode or to the bathroom using the walker. Subjective hx not possible: pt non-verbal Eyes: no complaints, other (History of cataract surgery) ENT: no complaints Respiratory: no complaints Cardiovascular: no complaints Gastrointestinal: passing stool (Black stools) Genitourinary: other (Urinary retention that required an indwelling Servin catheter yesterday) Musculoskeletal: no complaints Skin: no complaints Neurologic: other (History of stroke 2 years ago, family states that she never had seizure but she is on medication for it because of the stroke) Endocrine: no complaints Immunologic: no complaints Past Medical History Medical History: hypertension, other (Atrial fibrillation, history of a stroke) Past Surgical History Past Surgical Hx: cholecystectomy (Laparoscopic), other (Right wrist open reduction and internal fixation, surgery for varicose veins, bilateral cataract surgery) Family History Significant Family History: no pertinent family hx Social History Alcohol Use: none Smoking Status: Former smoker Drug Use: none Other Social History She has had multiple pregnancies granddaughter who was admitted at bedside and translating does not know how many pregnancies. Patient does have 2 children and has had multiple D&Cs Exam/Review of Systems Vital Signs Vitals Vital Signs Date Time Temp Pulse Resp B/P Pulse Ox O2 Delivery O2 Flow Rate FiO2 04/22/17 15:28 98.4 80 16 111/58 98 Nasal Cannula 2.0 Intake and Output 04/21/17 04/21/17 04/22/17 15:00 23:00 07:00 Intake Total 500 ml 340 ml 200 ml Output Total 950 ml 750 ml Balance 500 ml -610 ml -550 ml Exam Constitutional: alert Psych: no complaints Head: normocephalic Eyes: nl conjunctiva ENMT: nl external ears & nose Respiratory: normal air movement Cardiovascular: No jugular venous distention (JVD) Gastrointestinal: soft, surgical scars (From laparoscopic cholecystectomy) Genitourinary - Female: other (Pelvic exam reveals no mass and no discharge and no fecal impaction), No CVA tenderness Musculoskeletal: nl extremities to inspection Neurological: other (Dementia) Skin: nl turgor Results Result Diagram: 04/22/17 1331 04/22/17 0542 Results 24 hrs Laboratory Tests Test 04/21/17 18:02 04/21/17 18:45 04/21/17 21:10 04/22/17 05:42 Blood Gas Specimen Source Blood arterial Arterial Blood Date Drawn 04/21/2017 8:20:23 PM Arterial Blood pH (Temp corrected) 7.409 Arterial Blood pCO2 (Temp correct) 44.2 Arterial Blood pO2 (Temp corrected) 83.4 Arterial Blood HCO3 27.3 H Arterial Blood Base Excess 2.4 Arterial Blood Oxygen Saturation 95.8 Ron Test N/A Arterial Blood Gas Puncture Site Right Brachial Arterial Blood Carboxyhemoglobin 0.7 Arterial Blood Methemoglobin 0.1 Blood Gas A-a O2 Differential 35.1 H Oxyhemoglobin Percent 95.0 Total Hemoglobin 9.1 L Blood Gas Temperature 37.0 Blood Gas Modality NASAL CANNULA FiO2 24.0 Blood Gas Notified Whom UP Blood Gas Notified Time 04/21/2017 8:38:09 PM White Blood Count 6.1 Red Blood Count 2.85 L Hemoglobin 8.0 L 7.9 L 7.4 L Hematocrit 25.4 L 25.2 L 23.6 L Mean Corpuscular Volume 89.1 Mean Corpuscular Hemoglobin 28.1 L Mean Corpuscular Hemoglobin Concent 31.5 L Red Cell Distribution Width 17.9 H Platelet Count 157 Mean Platelet Volume 10.0 Neutrophils % 59.5 Lymphocytes % 23.9 Monocytes % 15.2 H Eosinophils % 0.8 Basophils % 0.3 Nucleated Red Blood Cells % 0.5 H Neutrophils # 3.6 Lymphocytes # 1.5 Monocytes # 0.9 Eosinophils # 0.1 Basophils # 0.0 Nucleated Red Blood Cells # 0.0 Sodium Level 144 146 H Potassium Level 4.2 4.0 Chloride Level 102 105 Carbon Dioxide Level 35 H 32 H Anion Gap 11 13 Blood Urea Nitrogen 25 H 22 H Creatinine 0.85 0.87 Glucose Level 131 127 Calcium Level 8.5 8.3 L Total Bilirubin 1.3 Direct Bilirubin 0.00 Indirect Bilirubin 1.3 H Aspartate Amino Transf (AST/SGOT) 61 H Alanine Aminotransferase (ALT/SGPT) 51 Alkaline Phosphatase 74 B-Type Natriuretic Peptide 632 H Total Protein 6.7 Albumin 3.5 Globulin 3.20 Albumin/Globulin Ratio 1.09 Prothrombin Time 14.4 # Prothrombin Time Ratio 1.1 INR International Normalized Ratio 1.10 Activated Partial Thromboplast Time 33.6 Test 04/22/17 06:28 04/22/17 13:31 Lab Scanned Report BLOOD TRANSFUSION Hemoglobin 7.5 L Hematocrit 24.1 L Imaging Free Text/Dictation CT scan of the abdomen and pelvis: 1. 36 mm lesion in the left kidney may represent a nodular complex mass or solid mass, and differential considerations include a cystic structure. 2. Noncontrast attenuation of this lesion is indeterminate, and recommend ultrasound examination for further evaluation. 3. Atelectasis at the midaxillary and posterior right costophrenic angle. 4. Otherwise, no acute process in the abdomen and pelvis. Medications Medications Current Medications Dextrose/Sodium Chloride (D5-1/2ns) 1,000 ml @ 100 mls/hr Q10H IV Last administered on 04/21/17t 07:37; Admin Dose 100 MLS/HR; Start 04/20/17 at 05:49 ; Status Future Hold Ondansetron HCl (Zofran Inj) 4 mg Q6H PRN IV NAUSEA AND/OR VOMITING; Start 04/20/17 at 06:00 Nitroglycerin (Nitroglycerin (Sl Tab) 0.4 Mg) 1 tab Q5M PRN SL CHEST PAIN; Start 04/20/17 at 06:00 Morphine Sulfate (morphine) 2 mg Q4H PRN IV PAIN LEVEL 7-10; Start 04/20/17 at 06:00 Pantoprazole 40 mg 40 mg BID IV Last administered on 04/22/17 08:34; Admin Dose 40 MG; Start 04/20/17 at 17:00 Levetiracetam (Keppra 500 Mg/ 100ml (Pmx)) 100 ml @ 400 mls/hr Q12 IVPB Last administered on 04/22/17 08:34; Admin Dose 400 MLS/HR; Start 04/21/17 at 21:00 Magnesium Citrate (Citroma) 300 ml ONCE ONCE PO ; Start 04/22/17 at 17:30; Stop 04/22/17 at 17:31 Polyethylene Glycol (Miralax) 119 gm ONCE ONCE PO ; Start 04/22/17 at 18:30; Stop 04/22/17 at 18:31 SHERITA BLAIR MD Apr 22, 2017 16:49
[2017-04-22] MEDS ORDERED: MAGNESIUM CITRATE 300 ML BTL PO ONE (17:30)
[2017-04-22] MEDS ORDERED: POLYETHYLENE GLYCOL 3350 119 GM POWDER PO ONE (18:30)
--- NOTE | 2017-04-22 19:24 | PN ---
Date/Time of Note Date/Time of Note DATE: 04/22/17 TIME: 19:18 Assessment/Plan VTE Prophylaxis VTE Prophylaxis Intervention: SCD's Lines/Catheters IV Catheter Type (from Nrs): Peripheral IV Assessment/Plan Chief Complaint/Hosp Course 1. Severe anemia secondary to GI bleed Status post 5 units packed red blood cells GI consultation appreciated, EGD yesterday showed moderate distal esophagitis and gastritis, plan is to continue PPI and prepare for colonoscopy Sunday Continue to hold home Xarelto 2. Suprapubic pain secondary to bladder distention from likely neurogenic bladder Pain and distention resolved with insertion of Servin catheter Urology consultation appreciated, plan is to keep Servin catheter in place for now and continue GI workup, further urological workup may be indicated after GI workup is complete 3. History of A. fib Hold Xarelto 4. Dementia Hold home p.o. meds 5. History of seizures Continue home Keppra but being given as an IV 6. History of hypertension Hold home meds secondary to hypotension Prophylaxis: SCDs Problems: Subjective 24 Hr Interval Summary Constitutional: disoriented Exam/Review of Systems Vital Signs Vitals Vital Signs Date Time Temp Pulse Resp B/P Pulse Ox O2 Delivery O2 Flow Rate FiO2 04/22/17 19:11 98.0 89 16 138/62 97 Nasal Cannula 2.0 Intake and Output 04/21/17 04/21/17 04/22/17 14:59 22:59 06:59 Intake Total 740 ml 340 ml 200 ml Output Total 950 ml 750 ml Balance 740 ml -610 ml -550 ml Exam Psych: confusion Respiratory: clear to auscultation Cardiovascular: regular rate and rhythm Gastrointestinal: soft, No distended Musculoskeletal: nl extremities to inspection Results Result Diagram: 04/22/17 1331 04/22/17 0542 Results 24 hrs Laboratory Tests Test 04/21/17 21:10 04/22/17 05:42 04/22/17 06:28 04/22/17 13:31 Hemoglobin 7.9 L 7.4 L 7.5 L Hematocrit 25.2 L 23.6 L 24.1 L Prothrombin Time 14.4 # Prothrombin Time Ratio 1.1 INR International Normalized Ratio 1.10 Activated Partial Thromboplast Time 33.6 Sodium Level 146 H Potassium Level 4.0 Chloride Level 105 Carbon Dioxide Level 32 H Anion Gap 13 Blood Urea Nitrogen 22 H Creatinine 0.87 Glucose Level 127 Calcium Level 8.3 L Lab Scanned Report BLOOD TRANSFUSION Medications Medications Current Medications Dextrose/Sodium Chloride (D5-1/2ns) 1,000 ml @ 100 mls/hr Q10H IV Last administered on 04/21/17 07:37; Admin Dose 100 MLS/HR; Start 04/20/17 at 05:49 ; Status Future Hold Ondansetron HCl (Zofran Inj) 4 mg Q6H PRN IV NAUSEA AND/OR VOMITING; Start 04/20/17 at 06:00 Nitroglycerin (Nitroglycerin (Sl Tab) 0.4 Mg) 1 tab Q5M PRN SL CHEST PAIN; Start 04/20/17 at 06:00 Morphine Sulfate (morphine) 2 mg Q4H PRN IV PAIN LEVEL 7-10; Start 04/20/17 at 06:00 Pantoprazole 40 mg 40 mg BID IV Last administered on 04/22/17 08:34; Admin Dose 40 MG; Start 04/20/17 at 17:00 Levetiracetam (Keppra 500 Mg/ 100ml (Pmx)) 100 ml @ 400 mls/hr Q12 IVPB Last administered on 04/22/17 08:34; Admin Dose 400 MLS/HR; Start 04/21/17 at 21:00 DONIS MCDANIEL Apr 22, 2017 19:24
[2017-04-22 21:04] LABS: HEMATOCRIT 26.5 % (37.0-47.0); HEMOGLOBIN 8.3 g/dl (12.0-16.0)
[2017-04-23] VITALS (21 sets, daily range): BP systolic 102–166; BP diastolic 43–79; PULSE 79–118; RESP 18–24
[2017-04-23] MEDS ORDERED: POLYETHYLENE GLYCOL 3350 119 GM POWDER PO ONE (06:00)
[2017-04-23 06:43] LABS: HEMATOCRIT 26.6 % (37.0-47.0); HEMOGLOBIN 8.3 g/dl (12.0-16.0)
[2017-04-23 06:54] LABS: INR 1.15; PARTIAL THROMBOPLASTIN TIME 31.6 Sec (25.0-35.0); PROTIME 14.9 Sec (11.9-14.9); PT RATIO 1.2
[2017-04-23 06:57] LABS: CALCIUM 8.1 mg/dl (8.4-10.2); CREATININE 0.84 mg/dl (0.44-1.00)
[2017-04-23] MEDS: ALBUTEROL/IPRATROPIUM (NEB) 3 ML AMP HHN PRN (07:43)
[2017-04-23] MEDS ORDERED: BISACODYL (EC) 5 MG TAB PO ONE (08:00)
[2017-04-23] MEDS: PANTOPRAZOLE 40 MG INJ IV SCH ×2 (08:47→22:38)
[2017-04-23] MEDS: LEVETIRACETAM 500 MG (PMX) 100 ML IVPB SCH (08:47)
--- NOTE | 2017-04-23 15:07 | PN ---
Date/Time of Note Date/Time of Note DATE: 04/23/17 TIME: 15:07 Assessment/Plan VTE Prophylaxis VTE Prophylaxis Intervention: SCD's Lines/Catheters IV Catheter Type (from Nrs): Saline Lock Urinary Cath still in place: Yes Reason Cath still needed: urinary retention Assessment/Plan Chief Complaint/Hosp Course 1. Severe anemia secondary to GI bleed Status post 5 units packed red blood cells GI consultation appreciated, EGD showed moderate distal esophagitis and gastritis, plan is to continue PPI and prepare for colonoscopy this afternoon Continue to hold home Xarelto 2. Suprapubic pain secondary to bladder distention from likely neurogenic bladder Pain and distention resolved with insertion of Servin catheter Urology consultation appreciated, plan is to keep Servin catheter in place for now and continue GI workup, further urological workup may be indicated after GI workup is complete 3. History of A. fib Hold Xarelto 4. Dementia Hold home p.o. meds 5. History of seizures Continue home Keppra but being given as an IV 6. History of hypertension Hold home meds secondary to hypotension Prophylaxis: SCDs Problems: Problems: Subjective 24 Hr Interval Summary Free Text/Dictation H/H stable Pending colonosocpy Exam/Review of Systems Vital Signs Vitals Vital Signs Date Time Temp Pulse Resp B/P Pulse Ox O2 Delivery O2 Flow Rate FiO2 04/23/17 12:06 87 04/23/17 11:11 98.5 18 127/62 100 04/23/17 08:47 Nasal Cannula 4.0 Intake and Output 04/22/17 04/22/17 04/23/17 15:00 23:00 07:00 Intake Total 890 ml 2000 ml Output Total 400 ml 500 ml Balance 490 ml 1500 ml Results Result Diagram: 04/23/17 0543 04/23/17 0543 Results 24 hrs Laboratory Tests Test 04/22/17 20:57 04/23/17 05:43 Hemoglobin 8.3 L 8.3 L Hematocrit 26.5 L 26.6 L Prothrombin Time 14.9 Prothrombin Time Ratio 1.2 INR International Normalized Ratio 1.15 Activated Partial Thromboplast Time 31.6 Sodium Level 145 H Potassium Level 4.0 Chloride Level 108 Carbon Dioxide Level 33 H Anion Gap 8 Blood Urea Nitrogen 24 H Creatinine 0.84 Glucose Level 104 Calcium Level 8.1 L Medications Medications Current Medications Ondansetron HCl (Zofran Inj) 4 mg Q6H PRN IV NAUSEA AND/OR VOMITING; Start 04/20/17 at 06:00 Nitroglycerin (Nitroglycerin (Sl Tab) 0.4 Mg) 1 tab Q5M PRN SL CHEST PAIN; Start 04/20/17 at 06:00 Morphine Sulfate (morphine) 2 mg Q4H PRN IV PAIN LEVEL 7-10; Start 04/20/17 at 06:00 Pantoprazole 40 mg 40 mg BID IV Last administered on 04/23/17 08:47; Admin Dose 40 MG; Start 04/20/17 at 17:00 Levetiracetam (Keppra 500 Mg/ 100ml (Pmx)) 100 ml @ 400 mls/hr Q12 IVPB Last administered on 04/23/17 08:47; Admin Dose 400 MLS/HR; Start 04/21/17 at 21:00 HUMA LEWIS MD Apr 23, 2017 15:07
[2017-04-23] MEDS ORDERED: LIDOCAINE 2% (SDV) 5 ML INJ ONE (18:28)
[2017-04-23] MEDS ORDERED: PROPOFOL 40 ML ONE (18:28)
--- NOTE | 2017-04-23 18:44 | CONS ---
Date/Time of Note Date/Time of Note DATE: 04/23/17 TIME: 18:40 Consult Date/Type/Reason Admit Date/Time Apr 20, 2017 at 03:00 Initial Consult Date 04/22/17 Type of Consultation: Urology Reason for Consultation Urinary retention Ordering Provider: ALBIN ALEXANDRA MD Subjective The patient is resting, her daughter is at her bedside. Patient is going for colonoscopy and as a matter of fact as I was leaving her room they were picking her up for the colonoscopy. Objective Vital Signs Date Time Temp Pulse Resp B/P Pulse Ox O2 Delivery O2 Flow Rate FiO2 04/23/17 18:29 5.0 04/23/17 16:04 115 04/23/17 15:46 101.1 19 154/75 92 04/23/17 08:47 Nasal Cannula Intake and Output 04/22/17 04/22/17 04/23/17 14:59 22:59 06:59 Intake Total 890 ml 2000 ml Output Total 400 ml 500 ml Balance 490 ml 1500 ml Exam Patient is sleeping but responds to commands from her daughter. The Servin catheter is draining clear urine Results/Medications Result Diagram: 04/23/17 0543 04/23/17 0543 Results 24 hrs Laboratory Tests Test 04/22/17 20:57 04/23/17 05:43 Hemoglobin 8.3 L 8.3 L Hematocrit 26.5 L 26.6 L Prothrombin Time 14.9 Prothrombin Time Ratio 1.2 INR International Normalized Ratio 1.15 Activated Partial Thromboplast Time 31.6 Sodium Level 145 H Potassium Level 4.0 Chloride Level 108 Carbon Dioxide Level 33 H Anion Gap 8 Blood Urea Nitrogen 24 H Creatinine 0.84 Glucose Level 104 Calcium Level 8.1 L Medications Current Medications Ondansetron HCl (Zofran Inj) 4 mg Q6H PRN IV NAUSEA AND/OR VOMITING; Start 04/20/17 at 06:00 Nitroglycerin (Nitroglycerin (Sl Tab) 0.4 Mg) 1 tab Q5M PRN SL CHEST PAIN; Start 04/20/17 at 06:00 Morphine Sulfate (morphine) 2 mg Q4H PRN IV PAIN LEVEL 7-10; Start 04/20/17 at 06:00 Pantoprazole 40 mg 40 mg BID IV Last administered on 04/23/17t 08:47; Admin Dose 40 MG; Start 04/20/17 at 17:00 Levetiracetam (Keppra 500 Mg/ 100ml (Pmx)) 100 ml @ 400 mls/hr Q12 IVPB Last administered on 04/23/17t 08:47; Admin Dose 400 MLS/HR; Start 04/21/17 at 21:00 Assessment/Plan Chief Complaint/Hosp Course 86-year-old female was sent to the hospital by her primary care physician because of severe anemia. The patient received blood transfusions, she underwent EGD and is going to have a colonoscopy this evening. She was found to be in urinary retention and Servin catheter was put in. Pelvic exam reveals no mass no discharge and no impaction. For now we will keep the Servin catheter in till she is done was the GI workup then depending on the findings we will decide if any urological testing or procedure is needed Problems: SHERITA BLAIR MD Apr 23, 2017 18:44
--- NOTE | 2017-04-23 19:01 | HPN ---
Date/Time of Note Date/Time of Note DATE: 04/23/17 TIME: 18:22 Interval H&P Admission Note Pt. seen H&P reviewed: No system changes CT BARNETT MD Apr 23, 2017 19:01
--- NOTE | 2017-04-23 19:04 | OPPN ---
Date/Time of Note Date/Time of Note DATE: 04/23/17 TIME: 19:02 Proc Note GI Procedure Date 04/23/17 Indication: other (Anemia) Pre-procedure Diagnosis Anemia Post-procedure Diagnosis Impression: Poor preparation No gross lesions Moderate-sized internal hemorrhoids Plan: Continue observation Advance diet as tolerated Small bowel follow-through . Procedure Performed: Colonoscopy Surgeon CT BARNETT MD See signature line Agricultural Pilot none Anesthesia Type: MAC Anesthesiologist: JONES POWERS MD Tourniquet Time none EBL none Transfusion required none Biopsy 1: None Grafts/Implants none Tubes/Drains none Complication(s) none Disposition: PACU Procedure Description After informed consent, with the patient/relatives understanding the procedure, its indications and potential risks and complications, including but not limited to: Allergic reaction, bleeding, perforation, infection, and after all pertinent questions were answered to the patient's satisfaction, the patient/ relatives signed the witnessed informed consent. Following this, premedication was administered slowly IV push under careful cardiovascular and respiratory monitoring with pulse OXIMETRY, automatic blood pressure, and relish maker. Once the sedative effect was achieved, the patient was placed in the left lateral decubitus position, digital rectal examination was performed. The colonoscope was then introduced and advanced under visual control throughout all segments of the colon including: []the rectum, sigmoid, descending colon, splenic flexure, transverse colon, hepatic flexure, ascending colon and finally reaching the cecum which was clearly identified by transillumination, finger indentation and the ileocecal valve. Careful examination of the mucosa of the lower gastrointestinal tract both on insertion as well as withdrawal of the instrument disclosed the following findings: PREPARATION QUALITY: [Poor, procedure completed] RECTAL EXAM: The anorectal area was visualized examined and digital rectal examination performed with the following findings: No evidence of perirectal disease, no masses. COLONIC MUCOSA: The mucosa of all segments of the colon was carefully examined and showed the following findings: Poor preparation precludes optimal examination but no gross lesions are identified. The examined mucosa with limitations mentioned appears within normal limits. There is no evidence of inflammatory changes, diverticular formation, polyps or neoplasms, vascular malformation, or any other abnormality. Moderate-sized internal hemorrhoids are present The instrument was then withdrawn, the patient tolerated the procedure well and was transferred out of the Endoscopy Suite awake and in good condition to continue recovery under observation. Copies To: CC: CT BARNETT MD, MORDO MD Apr 23, 2017 19:04
[2017-04-24] VITALS (12 sets, daily range): BP systolic 95–162; BP diastolic 55–83; PULSE 82–111; RESP 20
[2017-04-24] MEDS: LEVETIRACETAM 500 MG (PMX) 100 ML IVPB SCH ×3 (00:23→21:50)
[2017-04-24 06:15] LABS: INR 1.05; PROTIME 13.8 Sec (11.9-14.9); PT RATIO 1.1
[2017-04-24 06:16] LABS: PARTIAL THROMBOPLASTIN TIME 36.1 Sec (25.0-35.0)
[2017-04-24] MEDS: PANTOPRAZOLE 40 MG INJ IV SCH ×2 (10:10→21:50)
--- NOTE | 2017-04-24 15:38 | PN ---
Date/Time of Note Date/Time of Note DATE: 04/24/17 TIME: 15:21 Assessment/Plan VTE Prophylaxis VTE Prophylaxis Intervention: SCD's Lines/Catheters IV Catheter Type (from Nrs): Saline Lock Urinary Cath still in place: Yes Reason Cath still needed: other (indicate) (Monitor output) Assessment/Plan Chief Complaint/Hosp Course Assessment: Anemia improving (no signs of overt bleeding) Rule out small intestine bleeding Atrial fibrillation Hypertension Dementia History of CVA Plan: Advance diet to regular Small bowel x-ray Check a.m. labs Monitor H&H and transfuse for hemoglobin less than 7.5 Consultation performed in collaboration with Subjective: Patient is awake and alert 3. States feeling much better, eating clear diet. Appears to be slightly short of breath. Servin catheter is in place with concentrated urine output. Upon physical exam lungs sound clear to auscultation , periumbilical abdominal tenderness, possibly due to gas. Plan is to advance diet to regular, obtain small bowel x-ray, and check a.m. labs. From GI standpoint patient is not actively bleeding and appears stable for restarting anticoagulation medications. PHYSICAL EXAMINATION: GENERAL: Well developed, well nourished, alert & oriented x 3, in no acute distress SKIN: No lesions, no stigmata chronic liver disease, no evidence of bleeding diathesis, generalized edema. LYMPHATIC: No palpable lymphadenopathy. HEAD: Normocephalic, atraumatic, no tenderness. EYES: Pupils equal reactive to light and accommodation, full extraocular movements, sclera clear, non-icteric, no discharge. EARS/NOSE AND THROAT: Ears normal, nose normal, oropharynx normal, oral membranes well hydrated without lesions. NECK: Supple, no masses, thyroid normal, JVP within normal limits, carotids normal without bruits. CHEST: Inspection within normal limits. CARDIOVASCULAR: Heart: Regular rate and rhythm, no murmurs, gallops or rubs. Peripheral pulses present within normal limits, no cyanosis, clubbing or edemas. No pulsatile abdominal mass RESPIRATORY: Lungs clear to auscultation and percussion, no wheezing, no rubs GASTROINTESTINAL AND LIVER: Abdomen: Soft, obese. Periumbilical tenderness, non -distended, no hernias, no masses, no organomegaly, no ascites, no guarding, no rebound tenderness, normoactive bowel sounds. Rectal: Deferred. GENITOURINARY: Female genitalia within normal limits. Dark concentrated urine in the Servin bag EXTREMITIES: No cyanosis, clubbing or edema. Problems: Exam/Review of Systems Vital Signs Vitals Vital Signs Date Time Temp Pulse Resp B/P Pulse Ox O2 Delivery O2 Flow Rate FiO2 04/24/17 12:01 86 04/24/17 12:00 98.1 20 95/55 99 04/24/17 08:00 Nasal Cannula 3.0 Intake and Output 04/23/17 04/23/17 04/24/17 14:59 22:59 06:59 Intake Total 500 ml 20 ml Output Total 900 ml 1050 ml Balance -400 ml -1030 ml Results Result Diagram: 04/23/1743 04/23/17 0543 Results 24 hrs Laboratory Tests Test 04/24/17 05:11 Prothrombin Time 13.8 Prothrombin Time Ratio 1.1 INR International Normalized Ratio 1.05 Activated Partial Thromboplast Time 36.1 H Medications Medications Current Medications Ondansetron HCl (Zofran Inj) 4 mg Q6H PRN IV NAUSEA AND/OR VOMITING; Start 04/20/17 at 06:00 Nitroglycerin (Nitroglycerin (Sl Tab) 0.4 Mg) 1 tab Q5M PRN SL CHEST PAIN; Start 04/20/17 at 06:00 Morphine Sulfate (morphine) 2 mg Q4H PRN IV PAIN LEVEL 7-10; Start 04/20/17 at 06:00 Pantoprazole 40 mg 40 mg BID IV Last administered on 04/24/17 10:10; Admin Dose 40 MG; Start 04/20/17 at 17:00 Levetiracetam (Keppra 500 Mg/ 100ml (Pmx)) 100 ml @ 400 mls/hr Q12 IVPB Last administered on 04/24/17 10:23; Admin Dose 400 MLS/HR; Start 04/21/17 at 21:00 Copies To: CC: CT BARNETT MD, ANASTASIA NP Apr 24, 2017 15:38
--- NOTE | 2017-04-24 16:26 | PN ---
Date/Time of Note Date/Time of Note DATE: 04/24/17 TIME: 16:25 Assessment/Plan VTE Prophylaxis VTE Prophylaxis Intervention: other Lines/Catheters IV Catheter Type (from Nrs): Saline Lock Urinary Cath still in place: Yes Reason Cath still needed: urinary retention Assessment/Plan Chief Complaint/Hosp Course 1. Severe anemia secondary to GI bleed Status post 5 units packed red blood cells GI consultation appreciated, EGD showed moderate distal esophagitis and gastritis, colonscopy unremarkable Continue to hold home Xarelto Mangeemtn per GI 2. Suprapubic pain secondary to bladder distention from likely neurogenic bladder Pain and distention resolved with insertion of Servin catheter Urology consultation appreciated, plan is to keep Servin catheter in place for now and continue GI workup, further urological workup may be indicated after GI workup is complete 3. History of A. fib Hold Xarelto 4. Dementia Hold home p.o. meds 5. History of seizures Continue home Keppra but being given as an IV 6. History of hypertension Hold home meds secondary to hypotension Prophylaxis: SCDs Problems: Problems: Subjective 24 Hr Interval Summary Free Text/Dictation Scope negative for source of bleed H/H stable patient resting comfortably today Exam/Review of Systems Vital Signs Vitals Vital Signs Date Time Temp Pulse Resp B/P Pulse Ox O2 Delivery O2 Flow Rate FiO2 04/24/17 16:10 91 04/24/17 16:01 98.4 20 116/68 97 04/24/17 08:00 Nasal Cannula 3.0 Intake and Output 04/23/17 04/23/17 04/24/17 15:00 23:00 07:00 Intake Total 500 ml 20 ml Output Total 900 ml 1050 ml Balance -400 ml -1030 ml Exam Constitutional: alert, oriented, well developed Psych: nl mood/affect, no complaints Head: atraumatic, normocephalic Eyes: EOMI, PERRL, nl conjunctiva, nl lids, nl sclera ENMT: nl external ears & nose, nl lips & teeth, nl nasal mucosa & septum Neck: non-tender, supple Respiratory: clear to auscultation, normal air movement Cardiovascular: nl pulses, regular rate and rhythm Gastrointestinal: nl liver, spleen, non-tender, soft Musculoskeletal: nl extremities to inspection, nl gait and stance Extremities: normal pulses Neurological: [employer]ING [employer]OR II-XII intact, nl mental status, nl speech, nl strength Skin: nl turgor, No rash or lesions Lymph: nl lymph nodes Results Result Diagram: 04/23/1743 04/23/17542 Results 24 hrs Laboratory Tests Test 04/24/17 05:11 Prothrombin Time 13.8 Prothrombin Time Ratio 1.1 INR International Normalized Ratio 1.05 Activated Partial Thromboplast Time 36.1 H Medications Medications Current Medications Ondansetron HCl (Zofran Inj) 4 mg Q6H PRN IV NAUSEA AND/OR VOMITING; Start 04/20/17 at 06:00 Nitroglycerin (Nitroglycerin (Sl Tab) 0.4 Mg) 1 tab Q5M PRN SL CHEST PAIN; Start 04/20/17 at 06:00 Morphine Sulfate (morphine) 2 mg Q4H PRN IV PAIN LEVEL 7-10; Start 04/20/17 at 06:00 Pantoprazole 40 mg 40 mg BID IV Last administered on 04/24/17 10:10; Admin Dose 40 MG; Start 04/20/17 at 17:00 Levetiracetam (Keppra 500 Mg/ 100ml (Pmx)) 100 ml @ 400 mls/hr Q12 IVPB Last administered on 04/24/17 10:23; Admin Dose 400 MLS/HR; Start 04/21/17 at 21:00 HUMA LEWIS MD Apr 24, 2017 16:26
--- NOTE | 2017-04-24 20:10 | CONS ---
Date/Time of Note Date/Time of Note DATE: 04/24/17 TIME: 20:06 Consult Date/Type/Reason Admit Date/Time Apr 20, 2017 at 03:00 Initial Consult Date 04/22/17 Type of Consultation: Urology Reason for Consultation Urinary retention Ordering Provider: ALBIN ALEXANDRA MD Subjective Patient is alert and more comfortable. She denies having any pain. She has a indwelling Servin catheter that is draining clear urine Objective Vital Signs Date Time Temp Pulse Resp B/P Pulse Ox O2 Delivery O2 Flow Rate FiO2 04/24/17 19:26 97.9 102 20 120/78 93 04/24/17 08:00 Nasal Cannula 3.0 Intake and Output 04/23/17 04/23/17 04/24/17 15:00 23:00 07:00 Intake Total 500 ml 20 ml Output Total 900 ml 1050 ml Balance -400 ml -1030 ml Exam Abdomen is soft, Servin catheter is draining clear urine Results/Medications Result Diagram: 04/23/17 0543 04/23/17 0543 Results 24 hrs Laboratory Tests Test 04/24/17 05:11 Prothrombin Time 13.8 Prothrombin Time Ratio 1.1 INR International Normalized Ratio 1.05 Activated Partial Thromboplast Time 36.1 H Medications Current Medications Ondansetron HCl (Zofran Inj) 4 mg Q6H PRN IV NAUSEA AND/OR VOMITING; Start 04/20/17 at 06:00 Nitroglycerin (Nitroglycerin (Sl Tab) 0.4 Mg) 1 tab Q5M PRN SL CHEST PAIN; Start 04/20/17 at 06:00 Morphine Sulfate (morphine) 2 mg Q4H PRN IV PAIN LEVEL 7-10; Start 04/20/17 at 06:00 Pantoprazole 40 mg 40 mg BID IV Last administered on 04/24/17 10:10; Admin Dose 40 MG; Start 04/20/17 at 17:00 Levetiracetam (Keppra 500 Mg/ 100ml (Pmx)) 100 ml @ 400 mls/hr Q12 IVPB Last administered on 04/24/17 10:23; Admin Dose 400 MLS/HR; Start 04/21/17 at 21:00 Assessment/Plan Chief Complaint/Hosp Course 86-year-old female was sent to the hospital by her primary care physician because of severe anemia. The patient received blood transfusions, she underwent EGD and colonoscopy . The findings of the colonoscopy with poor prep but no lesions. She was found to be in urinary retention and Servin catheter was put in. Pelvic exam reveals no mass no discharge and no impaction. Plan is to discontinue the Servin catheter in a.m., check her postvoid residual was a bladder scan and do straight cath for a postvoid residual of 300 mL or if she does not void at the bladder scan shows 500 or more Problems: SHERITA BLAIR MD Apr 24, 2017 20:10
[2017-04-25] VITALS (11 sets, daily range): BP systolic 116–152; BP diastolic 56–98; PULSE 89–122; RESP 20
[2017-04-25] MEDS ORDERED: hydrALAzine 20 MG INJ IV PRN (01:30)
[2017-04-25 06:46] LABS: BASOPHILS % 0.2 % (0.0-2.0); EOSINOPHILS # 0.1 10^3/ul (0.0-0.5); EOSINOPHILS % 1.1 % (0.0-7.0); HEMATOCRIT 24.1 % (37.0-47.0); HEMOGLOBIN 7.4 g/dl (12.0-16.0); LYMPHOCYTES # 1.1 10^3/ul (0.8-2.9); MEAN CORPUSCULAR HEMOGLOBIN 28.7 pg (29.0-33.0); MEAN CORPUSCULAR HGB CONC 30.7 g/dl (32.0-37.0); MEAN CORPUSCULAR VOLUME 93.4 fl (82.0-101.0); MEAN PLATELET VOLUME 10.1 fl (7.4-10.4); MONOCYTE # 0.9 10^3/ul (0.3-0.9); MONOCYTES % 10.4 % (0.0-11.0); NEUTROPHIL # 6.4 10^3/ul (1.6-7.5); NEUTROPHILS % 74.9 % (39.0-77.0); PLATELET COUNT 115 10^3/UL (140-415); RED BLOOD COUNT 2.58 10^6/ul (4.20-5.40); WHITE BLOOD COUNT 8.5 10^3/ul (4.8-10.8)
[2017-04-25 07:02] LABS: INR 1.15; PARTIAL THROMBOPLASTIN TIME 34.9 Sec (25.0-35.0); PROTIME 14.9 Sec (11.9-14.9); PT RATIO 1.2
[2017-04-25 07:06] LABS: ALBUMIN 2.8 g/dl (3.3-4.9); ALBUMIN/GLOBULIN RATIO 0.9; BILIRUBIN,INDIRECT 1.1 mg/dl (0-1.1); BILIRUBIN,TOTAL 1.1 mg/dl (0.2-1.3); CALCIUM 8.4 mg/dl (8.4-10.2); CREATININE 0.75 mg/dl (0.44-1.00); POTASSIUM 4.1 mmol/L (3.5-5.1); TOTAL PROTEIN 5.9 g/dl (6.1-8.1)
[2017-04-25] MEDS: PANTOPRAZOLE 40 MG INJ IV SCH ×2 (08:32→20:34)
[2017-04-25] MEDS: LEVETIRACETAM 500 MG (PMX) 100 ML IVPB SCH ×2 (08:32→20:35)
[2017-04-25] MEDS ORDERED: DIATR MEGLU/DIATRIZOATE SODIUM 120 ML BTL ONE (13:11)
[2017-04-25] MEDS ORDERED: IOHEXOL 300MG/ML 150 ML BTL ONE (13:16)
[2017-04-25] MEDS ORDERED: IOHEXOL 300MG/ML 30 ML BTL ONE (13:16)
[2017-04-25] MEDS: SOD FERRIC GLUC COMPLX 125 MG in SOD CHLORIDE 0.9% 100 ML IVPB SCH (15:19)
--- NOTE | 2017-04-25 15:50 | PN ---
Date/Time of Note Date/Time of Note DATE: 04/25/17 TIME: 15:37 Assessment/Plan VTE Prophylaxis VTE Prophylaxis Intervention: SCD's Lines/Catheters [facility] Saline Lock Urinary Cath still in place: Yes Reason Cath still needed: urinary retention (Urine output monitoring) Assessment/Plan Chief Complaint/Hosp Course Assessment: Anemia Atrial fibrillation Hypertension Dementia History of CVA Plan: Restart regular diet Small bowel x-ray results - negative Blood transfusion Monitor H&H and transfuse for hemoglobin less than 7.5 Consultation performed in collaboration with Subjective: Patient is awake and alert, oriented to place but not time, she cannot recall the current month or the year. States feeling normal, has been n.p.o for small bowel x-ray but will restart regular diet. Appears to be slightly short of breath. Servin catheter is in place with concentrated urine output. Upon physical exam lungs sound clear to auscultation, abdomen is soft nontender. Plan is to transfuse blood, start regular diet, recheck morning labs. PHYSICAL EXAMINATION: GENERAL: Well developed, well nourished, alert & oriented x 3, in no acute distress SKIN: No lesions, no stigmata chronic liver disease, no evidence of bleeding diathesis, generalized edema. LYMPHATIC: No palpable lymphadenopathy. HEAD: Normocephalic, atraumatic, no tenderness. EYES: Pupils equal reactive to light and accommodation, full extraocular movements, sclera clear, non-icteric, no discharge. EARS/NOSE AND THROAT: Ears normal, nose normal, oropharynx normal, oral membranes well hydrated without lesions. NECK: Supple, no masses, thyroid normal, JVP within normal limits, carotids normal without bruits. CHEST: Inspection within normal limits. CARDIOVASCULAR: Heart: Regular rate and rhythm, no murmurs, gallops or rubs. Peripheral pulses present within normal limits, no cyanosis, clubbing or edemas. No pulsatile abdominal mass RESPIRATORY: Lungs clear to auscultation and percussion, no wheezing, no rubs GASTROINTESTINAL AND LIVER: Abdomen: Soft, obese. Nontender, non-distended, no hernias, no masses, no organomegaly, no ascites, no guarding, no rebound tenderness, normoactive bowel sounds. Rectal: Deferred. GENITOURINARY: Female genitalia within normal limits. Dark concentrated urine in the Servin bag EXTREMITIES: No cyanosis, clubbing or edema. Problems: Exam/Review of Systems Vital Signs Vitals Vital Signs Date Time Temp Pulse Resp B/P Pulse Ox O2 Delivery O2 Flow Rate FiO2 04/25/17 15:28 98.0 117 20 122/98 98 04/25/17 08:00 Nasal Cannula 3.0 Intake and Output 04/24/17 04/24/17 04/25/17 15:00 23:00 07:00 Intake Total 200 ml 150 ml Output Total 300 ml 550 ml Balance -100 ml -400 ml Results Result Diagram: 04/25/1762004/25/17620 Results 24 hrs Laboratory Tests Test 04/25/17 06:21 04/25/17 07:06 White Blood Count 8.5 # Red Blood Count 2.58 L Hemoglobin 7.4 L Hematocrit 24.1 L Mean Corpuscular Volume 93.4 Mean Corpuscular Hemoglobin 28.7 L Mean Corpuscular Hemoglobin Concent 30.7 L Red Cell Distribution Width 17.0 H Platelet Count 115 #L Mean Platelet Volume 10.1 Neutrophils % 74.9 Lymphocytes % 13.0 L Monocytes % 10.4 Eosinophils % 1.1 Basophils % 0.2 Nucleated Red Blood Cells % 0.0 Neutrophils # 6.4 Lymphocytes # 1.1 Monocytes # 0.9 Eosinophils # 0.1 Basophils # 0.0 Nucleated Red Blood Cells # 0.0 Prothrombin Time 14.9 Prothrombin Time Ratio 1.2 INR International Normalized Ratio 1.15 Activated Partial Thromboplast Time 34.9 Sodium Level 147 H Potassium Level 4.1 Chloride Level 107 Carbon Dioxide Level 33 H Anion Gap 11 Blood Urea Nitrogen 25 H Creatinine 0.75 Glucose Level 124 Calcium Level 8.4 Total Bilirubin 1.1 Direct Bilirubin 0.00 Indirect Bilirubin 1.1 Aspartate Amino Transf (AST/SGOT) 23 Alanine Aminotransferase (ALT/SGPT) 39 Alkaline Phosphatase 70 Total Protein 5.9 L Albumin 2.8 L Globulin 3.10 Albumin/Globulin Ratio 0.90 Lab Scanned Report BLOOD TRANSFUSION Medications Medications Current Medications Ondansetron HCl (Zofran Inj) 4 mg Q6H PRN IV NAUSEA AND/OR VOMITING; Start 04/20/17 at 06:00 Nitroglycerin (Nitroglycerin (Sl Tab) 0.4 Mg) 1 tab Q5M PRN SL CHEST PAIN; Start 04/20/17 at 06:00 Pantoprazole 40 mg 40 mg BID IV Last administered on 04/25/17 08:32; Admin Dose 40 MG; Start 04/20/17 at 17:00 Levetiracetam (Keppra 500 Mg/ 100ml (Pmx)) 100 ml @ 400 mls/hr Q12 IVPB Last administered on 04/25/17 08:32; Admin Dose 400 MLS/HR; Start 04/21/17 at 21:00 Hydralazine HCl 10 mg 10 mg Q4H PRN IV ELEVATED SYSTOLIC BP; Start 04/25/17 at 01:30 Ferric Sodium Gluconate Complex/ Sodium Chloride (Ferrlecit/NS) 110 ml @ 110 mls/hr Q24H IVPB Last administered on 04/25/17 15:19; Admin Dose 110 MLS/HR; Start 04/25/17 at 15:00; Stop 04/29/17 at 15:59 Copies To: CC: CT BARNETT MD, ANASTASIA NP Apr 25, 2017 15:49 MACK MANN NP Apr 25, 2017 15:49
--- NOTE | 2017-04-25 15:51 | RADRPT ---
PROCEDURE: XR small-bowel follow-through. CLINICAL INDICATION: Nausea, vomiting TECHNIQUE: Multiple overhead radiographs of the abdomen were obtained following the uncomplicated Oral administration of Omnipaque contrast. No fluoroscopic guidance was utilized. Fluoro time: 0.0 minutes. Number of images/sequences: 12 COMPARISON: DR CHEST 04/22/2017; CT 04/20/2017 FINDINGS: Right upper quadrant surgical clips are suggestive of prior cholecystectomy. The bowel gas pattern i s unremarkable. Contrast flows easily through the bowel loops into the colon. Contrast reaches the cecum and ascending colon at 60 minutes post contrast administration. No evidence for obstruction i s seen. No bowel wall abnormality is identified. IMPRESSION: 1. Unremarkable small bowel follow-through. No evidence of small bowel obstruction. RPTAT: QQ .Steven Dawkins MD, Date Time Electronically viewed and signed by .Steven Dawkins MD, on 04/25/2017 15:51 .R/
--- NOTE | 2017-04-25 16:52 | PN ---
Date/Time of Note Date/Time of Note DATE: 04/25/17 TIME: 16:50 Assessment/Plan VTE Prophylaxis VTE Prophylaxis Intervention: SCD's Lines/Catheters IV Catheter Type (from Nrs): Saline Lock Urinary Cath still in place: Yes Reason Cath still needed: urinary retention Assessment/Plan Chief Complaint/Hosp Course 1. Severe anemia secondary to GI bleed - Status post 5 units packed red blood cells on admission, 1 again 04/25 - EGD showed moderate distal esophagitis and gastritis, colonscopy unremarkable , small bowel barium XR normal - Continue to hold home Xarelto - Management per GI Urinary retention: - Pain and distention resolved with insertion of Servin catheter - Urology consultation appreciated, plan is to keep Servin catheter in place for now and continue GI workup, further urological workup may be indicated after GI workup is complete 3. History of A. fib Hold Xarelto 4. Dementia Hold home p.o. meds 5. History of seizures Continue home Keppra but being given as an IV 6. History of hypertension Hold home meds secondary to hypotension Prophylaxis: SCDs Problems: Subjective 24 Hr Interval Summary Free Text/Dictation Transfused 1 unit for Hgb 7.4 Small bowel series done today, results are unremarkable Exam/Review of Systems Vital Signs Vitals Vital Signs Date Time Temp Pulse Resp B/P Pulse Ox O2 Delivery O2 Flow Rate FiO2 04/25/17 16:37 99 04/25/17 15:28 98.0 20 122/98 98 04/25/17 08:00 Nasal Cannula 3.0 Intake and Output 04/24/17 04/24/17 04/25/17 15:00 23:00 07:00 Intake Total 200 ml 150 ml Output Total 300 ml 550 ml Balance -100 ml -400 ml Exam Constitutional: alert, oriented, well developed Psych: nl mood/affect, no complaints Head: atraumatic, normocephalic Eyes: EOMI, PERRL, nl conjunctiva, nl lids, nl sclera ENMT: nl external ears & nose, nl lips & teeth, nl nasal mucosa & septum Neck: non-tender, supple Respiratory: clear to auscultation, normal air movement Cardiovascular: nl pulses, regular rate and rhythm Gastrointestinal: nl liver, spleen, non-tender, soft Musculoskeletal: nl extremities to inspection, nl gait and stance Extremities: normal pulses Neurological: BODYWORK THERAPIST II-XII intact, nl mental status, nl speech, nl strength Skin: nl turgor, No rash or lesions Lymph: nl lymph nodes Results Result Diagram: 04/25/1762004/25/17620 Results 24 hrs Laboratory Tests Test 04/25/17 06:21 04/25/17 07:06 White Blood Count 8.5 # Red Blood Count 2.58 L Hemoglobin 7.4 L Hematocrit 24.1 L Mean Corpuscular Volume 93.4 Mean Corpuscular Hemoglobin 28.7 L Mean Corpuscular Hemoglobin Concent 30.7 L Red Cell Distribution Width 17.0 H Platelet Count 115 #L Mean Platelet Volume 10.1 Neutrophils % 74.9 Lymphocytes % 13.0 L Monocytes % 10.4 Eosinophils % 1.1 Basophils % 0.2 Nucleated Red Blood Cells % 0.0 Neutrophils # 6.4 Lymphocytes # 1.1 Monocytes # 0.9 Eosinophils # 0.1 Basophils # 0.0 Nucleated Red Blood Cells # 0.0 Prothrombin Time 14.9 Prothrombin Time Ratio 1.2 INR International Normalized Ratio 1.15 Activated Partial Thromboplast Time 34.9 Sodium Level 147 H Potassium Level 4.1 Chloride Level 107 Carbon Dioxide Level 33 H Anion Gap 11 Blood Urea Nitrogen 25 H Creatinine 0.75 Glucose Level 124 Calcium Level 8.4 Total Bilirubin 1.1 Direct Bilirubin 0.00 Indirect Bilirubin 1.1 Aspartate Amino Transf (AST/SGOT) 23 Alanine Aminotransferase (ALT/SGPT) 39 Alkaline Phosphatase 70 Total Protein 5.9 L Albumin 2.8 L Globulin 3.10 Albumin/Globulin Ratio 0.90 Lab Scanned Report BLOOD TRANSFUSION Medications Medications Current Medications Ondansetron HCl (Zofran Inj) 4 mg Q6H PRN IV NAUSEA AND/OR VOMITING; Start 04/20/17 at 06:00 Nitroglycerin (Nitroglycerin (Sl Tab) 0.4 Mg) 1 tab Q5M PRN SL CHEST PAIN; Start 04/20/17 at 06:00 Pantoprazole 40 mg 40 mg BID IV Last administered on 04/25/17 08:32; Admin Dose 40 MG; Start 04/20/17 at 17:00 Levetiracetam (Keppra 500 Mg/ 100ml (Pmx)) 100 ml @ 400 mls/hr Q12 IVPB Last administered on 04/25/17 08:32; Admin Dose 400 MLS/HR; Start 04/21/17 at 21:00 Hydralazine HCl 10 mg 10 mg Q4H PRN IV ELEVATED SYSTOLIC BP; Start 04/25/17 at 01:30 Ferric Sodium Gluconate Complex/ Sodium Chloride (Ferrlecit/NS) 110 ml @ 110 mls/hr Q24H IVPB Last administered on 04/25/17t 15:19; Admin Dose 110 MLS/HR; Start 04/25/17 at 15:00; Stop 04/29/17 at 15:59 HUMA LEWIS MD Apr 25, 2017 16:52
[2017-04-26] VITALS (11 sets, daily range): BP systolic 121–166; BP diastolic 58–86; PULSE 92–101; RESP 16–21
[2017-04-26] MEDS: ALBUTEROL/IPRATROPIUM (NEB) 3 ML AMP HHN PRN (00:28)
[2017-04-26] MEDS: LEVETIRACETAM 500 MG (PMX) 100 ML IVPB SCH ×2 (09:09→20:46)
[2017-04-26] MEDS: PANTOPRAZOLE 40 MG INJ IV SCH ×2 (09:09→20:45)
[2017-04-26 09:22] LABS: BASOPHILS % 0.6 % (0.0-2.0); EOSINOPHILS # 0.2 10^3/ul (0.0-0.5); EOSINOPHILS % 2.5 % (0.0-7.0); HEMATOCRIT 28.3 % (37.0-47.0); HEMOGLOBIN 8.8 g/dl (12.0-16.0); LYMPHOCYTES # 1.1 10^3/ul (0.8-2.9); LYMPHOCYTES % 15.5 % (15.0-51.0); MEAN CORPUSCULAR HEMOGLOBIN 29.1 pg (29.0-33.0); MEAN CORPUSCULAR HGB CONC 31.1 g/dl (32.0-37.0); MEAN CORPUSCULAR VOLUME 93.7 fl (82.0-101.0); MEAN PLATELET VOLUME 10.2 fl (7.4-10.4); MONOCYTE # 0.8 10^3/ul (0.3-0.9); MONOCYTES % 11.1 % (0.0-11.0); NEUTROPHIL # 4.8 10^3/ul (1.6-7.5); PLATELET COUNT 121 10^3/UL (140-415); RED BLOOD COUNT 3.02 10^6/ul (4.20-5.40); RED CELL DISTRIBUTION WIDTH 17.2 % (11.5-14.5); WHITE BLOOD COUNT 6.9 10^3/ul (4.8-10.8)
[2017-04-26 09:41] LABS: ALBUMIN 2.8 g/dl (3.3-4.9); ALBUMIN/GLOBULIN RATIO 0.93; CALCIUM 8.3 mg/dl (8.4-10.2); CREATININE 0.72 mg/dl (0.44-1.00); POTASSIUM 4.3 mmol/L (3.5-5.1); TOTAL PROTEIN 5.8 g/dl (6.1-8.1)
[2017-04-26] MEDS: SOD FERRIC GLUC COMPLX 125 MG in SOD CHLORIDE 0.9% 100 ML IVPB SCH (15:19)
--- NOTE | 2017-04-26 15:47 | PN ---
Date/Time of Note Date/Time of Note DATE: 04/26/17 TIME: 15:46 Assessment/Plan VTE Prophylaxis VTE Prophylaxis Intervention: SCD's Lines/Catheters IV Catheter Type (from [facility], [place]): Saline Lock Urinary Cath still in place: No (sales removed by day nurse during the day) Assessment/Plan Chief Complaint/Hosp Course 1. Severe anemia secondary to GI bleed - Status post 5 units packed red blood cells on admission, 1 again 04/25 - EGD showed moderate distal esophagitis and gastritis, colonscopy unremarkable , small bowel barium XR normal - Continue to hold home Xarelto - Risk of AC for her A-Fib likley outweighs benefit at this point given intracranial bleeding and now massive GI bleeding of unclear source Urinary retention: - Pain and distention resolved with insertion of Sales catheter - Urology consultation appreciated, plan is to keep Sales catheter in place for now and continue GI workup, further urological workup may be indicated after GI workup is complete 3. History of A. fib Hold Xarelto, likley permanently as above 4. Dementia Hold home p.o. meds 5. History of seizures Continue home Keppra but being given as an IV 6. History of hypertension Hold home meds secondary to hypotension Prophylaxis: SCDs Problems: Subjective 24 Hr Interval Summary Free Text/Dictation No further bleeding Patient stable, no complaints Exam/Review of Systems Vital Signs Vitals Vital Signs Date Time Temp Pulse Resp B/P Pulse Ox O2 Delivery O2 Flow Rate FiO2 04/26/17 13:16 2.0 04/26/17 12:08 97 04/26/17 11:28 97.9 21 128/72 98 04/26/17 08:20 Nasal Cannula Intake and Output 04/25/17 04/25/17 04/26/17 15:00 23:00 07:00 Intake Total 400 ml 200 ml Balance 400 ml 200 ml Exam Constitutional: alert, oriented, well developed Psych: nl mood/affect, no complaints Head: atraumatic, normocephalic Eyes: EOMI, PERRL, nl conjunctiva, nl lids, nl sclera ENMT: nl external ears & nose, nl lips & teeth, nl nasal mucosa & septum Neck: non-tender, supple Respiratory: clear to auscultation, normal air movement Cardiovascular: nl pulses, regular rate and rhythm Gastrointestinal: nl liver, spleen, non-tender, soft Musculoskeletal: nl extremities to inspection, nl gait and stance Extremities: normal pulses Neurological: BLOWER INSULATOR II-XII intact, nl mental status, nl speech, nl strength Skin: nl turgor, No rash or lesions Lymph: nl lymph nodes Results Result Diagram: 04/26/17 0842 04/26/17 0842 Results 24 hrs Laboratory Tests Test 04/26/17 07:00 04/26/17 08:42 Lab Scanned Report BLOOD TRANSFUSION White Blood Count 6.9 Red Blood Count 3.02 L Hemoglobin 8.8 L Hematocrit 28.3 L Mean Corpuscular Volume 93.7 Mean Corpuscular Hemoglobin 29.1 Mean Corpuscular Hemoglobin Concent 31.1 L Red Cell Distribution Width 17.2 H Platelet Count 121 L Mean Platelet Volume 10.2 Neutrophils % 70.0 Lymphocytes % 15.5 Monocytes % 11.1 H Eosinophils % 2.5 Basophils % 0.6 Nucleated Red Blood Cells % 0.0 Neutrophils # 4.8 Lymphocytes # 1.1 Monocytes # 0.8 Eosinophils # 0.2 Basophils # 0.0 Nucleated Red Blood Cells # 0.0 Sodium Level 148 H Potassium Level 4.3 Chloride Level 110 Carbon Dioxide Level 33 H Anion Gap 9 Blood Urea Nitrogen 22 H Creatinine 0.72 Glucose Level 110 Calcium Level 8.3 L Total Bilirubin 2.0 H Direct Bilirubin 0.00 Indirect Bilirubin 2.0 H Aspartate Amino Transf (AST/SGOT) 24 Alanine Aminotransferase (ALT/SGPT) 36 Alkaline Phosphatase 70 Total Protein 5.8 L Albumin 2.8 L Globulin 3.00 Albumin/Globulin Ratio 0.93 Medications Medications Current Medications Ondansetron HCl (Zofran Inj) 4 mg Q6H PRN IV NAUSEA AND/OR VOMITING; Start 04/20/17 at 06:00 Nitroglycerin (Nitroglycerin (Sl Tab) 0.4 Mg) 1 tab Q5M PRN SL CHEST PAIN; Start 04/20/17 at 06:00 Pantoprazole 40 mg 40 mg BID IV Last administered on 04/26/17 09:09; Admin Dose 40 MG; Start 04/20/17 at 17:00 Levetiracetam (Keppra 500 Mg/ 100ml (Pmx)) 100 ml @ 400 mls/hr Q12 IVPB Last administered on 04/26/17 09:09; Admin Dose 400 MLS/HR; Start 04/21/17 at 21:00 Hydralazine HCl 10 mg 10 mg Q4H PRN IV ELEVATED SYSTOLIC BP; Start 04/25/17 at 01:30 Ferric Sodium Gluconate Complex/ Sodium Chloride (Ferrlecit/NS) 110 ml @ 110 mls/hr Q24H IVPB Last administered on 04/26/17t 15:19; Admin Dose 110 MLS/HR; Start 04/25/17 at 15:00; Stop 04/29/17 at 15:59 HUMA LEWIS MD Apr 26, 2017 15:47
--- NOTE | 2017-04-26 16:56 | PN ---
Date/Time of Note Date/Time of Note DATE: 04/26/17 TIME: 16:50 Assessment/Plan VTE Prophylaxis VTE Prophylaxis Intervention: ambulation, SCD's Lines/Catheters IV Catheter Type (from Nrs): Saline Lock Urinary Cath still in place: No (sales removed by day nurse during the day) Assessment/Plan Chief Complaint/Hosp Course Assessment: Anemia Atrial fibrillation Hypertension Dementia History of CVA Plan: Continue regular diet Small bowel x-ray results - negative Continue IV iron replacement Monitor H&H and transfuse for hemoglobin less than 7.5 Consultation performed in collaboration with Subjective: Patient is awake and alert, oriented to place but not time. She reports feeling well today, eating regular diet and has a good appetite. Sales catheter has been DC'd and patient is voiding spontaneously. Patient is doing physical therapy daily. On physical exam lungs sound clear to auscultation, abdomen is soft nontender. Plan is to monitor for signs of overt GI bleeding, recheck H&H in the morning and transfuse for hemoglobin less than 7.5. PHYSICAL EXAMINATION: GENERAL: Well developed, well nourished, alert & oriented x 3, in no acute distress SKIN: No lesions, no stigmata chronic liver disease, no evidence of bleeding diathesis, generalized edema. LYMPHATIC: No palpable lymphadenopathy. HEAD: Normocephalic, atraumatic, no tenderness. EYES: Pupils equal reactive to light and accommodation, full extraocular movements, sclera clear, non-icteric, no discharge. EARS/NOSE AND THROAT: Ears normal, nose normal, oropharynx normal, oral membranes well hydrated without lesions. NECK: Supple, no masses, thyroid normal, JVP within normal limits, carotids normal without bruits. CHEST: Inspection within normal limits. CARDIOVASCULAR: Heart: Regular rate and rhythm, no murmurs, gallops or rubs. Peripheral pulses present within normal limits, no cyanosis, clubbing or edemas. No pulsatile abdominal mass RESPIRATORY: Lungs clear to auscultation and percussion, no wheezing, no rubs GASTROINTESTINAL AND LIVER: Abdomen: Soft, obese. Nontender, non-distended, no hernias, no masses, no organomegaly, no ascites, no guarding, no rebound tenderness, normoactive bowel sounds. Rectal: Deferred. GENITOURINARY: Female genitalia within normal limits. Dark concentrated urine in the Sales bag EXTREMITIES: No cyanosis, clubbing or edema. Problems: Exam/Review of Systems Vital Signs Vitals Vital Signs Date Time Temp Pulse Resp B/P Pulse Ox O2 Delivery O2 Flow Rate FiO2 04/26/17 16:17 97.6 101 20 122/75 98 04/26/17 16:00 2.0 04/26/17 08:20 Nasal Cannula Intake and Output 04/25/17 04/25/17 04/26/17 15:00 23:00 07:00 Intake Total 400 ml 200 ml Balance 400 ml 200 ml Results Result Diagram: 04/26/17 0842 04/26/17 0842 Results 24 hrs Laboratory Tests Test 04/26/17 07:00 04/26/17 08:42 Lab Scanned Report BLOOD TRANSFUSION White Blood Count 6.9 Red Blood Count 3.02 L Hemoglobin 8.8 L Hematocrit 28.3 L Mean Corpuscular Volume 93.7 Mean Corpuscular Hemoglobin 29.1 Mean Corpuscular Hemoglobin Concent 31.1 L Red Cell Distribution Width 17.2 H Platelet Count 121 L Mean Platelet Volume 10.2 Neutrophils % 70.0 Lymphocytes % 15.5 Monocytes % 11.1 H Eosinophils % 2.5 Basophils % 0.6 Nucleated Red Blood Cells % 0.0 Neutrophils # 4.8 Lymphocytes # 1.1 Monocytes # 0.8 Eosinophils # 0.2 Basophils # 0.0 Nucleated Red Blood Cells # 0.0 Sodium Level 148 H Potassium Level 4.3 Chloride Level 110 Carbon Dioxide Level 33 H Anion Gap 9 Blood Urea Nitrogen 22 H Creatinine 0.72 Glucose Level 110 Calcium Level 8.3 L Total Bilirubin 2.0 H Direct Bilirubin 0.00 Indirect Bilirubin 2.0 H Aspartate Amino Transf (AST/SGOT) 24 Alanine Aminotransferase (ALT/SGPT) 36 Alkaline Phosphatase 70 Total Protein 5.8 L Albumin 2.8 L Globulin 3.00 Albumin/Globulin Ratio 0.93 Medications Medications Current Medications Ondansetron HCl (Zofran Inj) 4 mg Q6H PRN IV NAUSEA AND/OR VOMITING; Start 04/20/17 at 06:00 Nitroglycerin (Nitroglycerin (Sl Tab) 0.4 Mg) 1 tab Q5M PRN SL CHEST PAIN; Start 04/20/17 at 06:00 Pantoprazole 40 mg 40 mg BID IV Last administered on 04/26/17t 09:09; Admin Dose 40 MG; Start 04/20/17 at 17:00 Levetiracetam (Keppra 500 Mg/ 100ml (Pmx)) 100 ml @ 400 mls/hr Q12 IVPB Last administered on 04/26/17 09:09; Admin Dose 400 MLS/HR; Start 04/21/17 at 21:00 Hydralazine HCl 10 mg 10 mg Q4H PRN IV ELEVATED SYSTOLIC BP; Start 04/25/17 at 01:30 Ferric Sodium Gluconate Complex/ Sodium Chloride (Ferrlecit/NS) 110 ml @ 110 mls/hr Q24H IVPB Last administered on 04/26/17 15:19; Admin Dose 110 MLS/HR; Start 04/25/17 at 15:00; Stop 04/29/17 at 15:59 Copies To: CC: CT BARNETT MD, ANASTASIA NP Apr 26, 2017 16:56
--- NOTE | 2017-04-26 20:42 | CONS ---
Date/Time of Note Date/Time of Note DATE: 04/26/17 TIME: 20:38 Consult Date/Type/Reason Admit Date/Time Apr 20, 2017 at 03:00 Initial Consult Date 04/22/17 Type of Consultation: Urology Reason for Consultation Urinary retention Ordering Provider: ALBIN ALEXANDRA MD Subjective Patient herself is not expressing any complaint Objective Vital Signs Date Time Temp Pulse Resp B/P Pulse Ox O2 Delivery O2 Flow Rate FiO2 04/26/17 20:12 99 04/26/17 19:48 99.9 16 141/78 98 04/26/17 16:00 2.0 04/26/17 08:20 Nasal Cannula Intake and Output 04/25/17 04/25/17 04/26/17 15:00 23:00 07:00 Intake Total 400 ml 200 ml Balance 400 ml 200 ml Exam Patient is sleeping, at her bedside, her nurse tells me that she has been voiding and her postvoid residual has been small, less than 100 mL Results/Medications Result Diagram: 04/26/17 0842 04/26/17 0842 Results 24 hrs Laboratory Tests Test 04/26/17 07:00 04/26/17 08:42 Lab Scanned Report BLOOD TRANSFUSION White Blood Count 6.9 Red Blood Count 3.02 L Hemoglobin 8.8 L Hematocrit 28.3 L Mean Corpuscular Volume 93.7 Mean Corpuscular Hemoglobin 29.1 Mean Corpuscular Hemoglobin Concent 31.1 L Red Cell Distribution Width 17.2 H Platelet Count 121 L Mean Platelet Volume 10.2 Neutrophils % 70.0 Lymphocytes % 15.5 Monocytes % 11.1 H Eosinophils % 2.5 Basophils % 0.6 Nucleated Red Blood Cells % 0.0 Neutrophils # 4.8 Lymphocytes # 1.1 Monocytes # 0.8 Eosinophils # 0.2 Basophils # 0.0 Nucleated Red Blood Cells # 0.0 Sodium Level 148 H Potassium Level 4.3 Chloride Level 110 Carbon Dioxide Level 33 H Anion Gap 9 Blood Urea Nitrogen 22 H Creatinine 0.72 Glucose Level 110 Calcium Level 8.3 L Total Bilirubin 2.0 H Direct Bilirubin 0.00 Indirect Bilirubin 2.0 H Aspartate Amino Transf (AST/SGOT) 24 Alanine Aminotransferase (ALT/SGPT) 36 Alkaline Phosphatase 70 Total Protein 5.8 L Albumin 2.8 L Globulin 3.00 Albumin/Globulin Ratio 0.93 Medications Current Medications Ondansetron HCl (Zofran Inj) 4 mg Q6H PRN IV NAUSEA AND/OR VOMITING; Start 04/20/17 at 06:00 Nitroglycerin (Nitroglycerin (Sl Tab) 0.4 Mg) 1 tab Q5M PRN SL CHEST PAIN; Start 04/20/17 at 06:00 Pantoprazole 40 mg 40 mg BID IV Last administered on 04/26/17 09:09; Admin Dose 40 MG; Start 04/20/17 at 17:00 Levetiracetam (Keppra 500 Mg/ 100ml (Pmx)) 100 ml @ 400 mls/hr Q12 IVPB Last administered on 04/26/17 09:09; Admin Dose 400 MLS/HR; Start 04/21/17 at 21:00 Hydralazine HCl 10 mg 10 mg Q4H PRN IV ELEVATED SYSTOLIC BP; Start 04/25/17 at 01:30 Ferric Sodium Gluconate Complex/ Sodium Chloride (Ferrlecit/NS) 110 ml @ 110 mls/hr Q24H IVPB Last administered on 04/26/17 15:19; Admin Dose 110 MLS/HR; Start 04/25/17 at 15:00; Stop 04/29/17 at 15:59 Assessment/Plan Chief Complaint/Hosp Course 86-year-old female was sent to the hospital by her primary care physician because of severe anemia. The patient received blood transfusions, she underwent EGD and colonoscopy . The findings of the colonoscopy with poor prep but no lesions. She was found to be in urinary retention and Servin catheter was put in. Pelvic exam reveals no mass no discharge and no impaction. the Servin catheter was removed yesterday and she has been voiding and the postvoid residual has been low therefore there is no need to continue checking her bladder was bladder scan. Problems: SHERITA BLAIR MD Apr 26, 2017 20:42
[2017-04-26] MEDS ORDERED: ACETAMINOPHEN 650MG/20.3ML CUP PO PRN (23:00)
[2017-04-27] VITALS (8 sets, daily range): BP systolic 154–162; BP diastolic 75–90; PULSE 87–100; RESP 19–20
[2017-04-27] MEDS: ALBUTEROL/IPRATROPIUM (NEB) 3 ML AMP HHN PRN (05:36)
[2017-04-27 07:02] LABS: BASOPHILS % 0.5 % (0.0-2.0); EOSINOPHILS # 0.2 10^3/ul (0.0-0.5); EOSINOPHILS % 2.9 % (0.0-7.0); HEMATOCRIT 28.7 % (37.0-47.0); HEMOGLOBIN 8.8 g/dl (12.0-16.0); LYMPHOCYTES # 1.5 10^3/ul (0.8-2.9); LYMPHOCYTES % 22.1 % (15.0-51.0); MEAN CORPUSCULAR HEMOGLOBIN 28.7 pg (29.0-33.0); MEAN CORPUSCULAR HGB CONC 30.7 g/dl (32.0-37.0); MEAN CORPUSCULAR VOLUME 93.5 fl (82.0-101.0); MEAN PLATELET VOLUME 10.4 fl (7.4-10.4); MONOCYTE # 0.7 10^3/ul (0.3-0.9); NEUTROPHIL # 4.2 10^3/ul (1.6-7.5); NEUTROPHILS % 63.2 % (39.0-77.0); PLATELET COUNT 126 10^3/UL (140-415); RED BLOOD COUNT 3.07 10^6/ul (4.20-5.40); RED CELL DISTRIBUTION WIDTH 16.8 % (11.5-14.5); WHITE BLOOD COUNT 6.6 10^3/ul (4.8-10.8)
[2017-04-27] MEDS: LEVETIRACETAM 500 MG (PMX) 100 ML IVPB SCH (09:23)
[2017-04-27] MEDS: PANTOPRAZOLE 40 MG INJ IV SCH (09:23)
--- NOTE | 2017-04-27 09:58 | PDOCDIS ---
Discharge Instructions DIAGNOSIS Discharge Diagnosis GI bleeding, acute blood loss anemia CONDITION Patient Condition: Fair HOME CARE INSTRUCTIONS: Diet Instructions: RegularSpecial Diet: Regular FOLLOW UP/APPOINTMENTS Follow-up Plan STOP TAKING XARELTO for the time being as it is likely more risky to take this medicine than to take it. Please follow up with your primary doctor in the clinic for further medical care. HUMA LEWIS MD Apr 27, 2017 09:58
--- NOTE | 2017-04-27 10:01 | DS ---
Date/Time of Note Date/Time of Note DATE: 04/27/17 TIME: 09:58 Discharge Summary Admission/Discharge Info Admit Date/Time Apr 20, 2017 at 03:00 Discharge Date/Time Discharge Diagnosis GI bleeding, acute blood loss anemia Patient Condition: Stable Hospital Course The patient was found to have a severe acute blood loss anemia. She was transfused 5 units of blood on admission. She remained hemodynamically stable. Her Xarelto was held. She underwent EGD and colonoscopy which were unrevealing for a source of her bleed. She then underwent a small bowel series which was also unremarkable. She had no further bleeding while off of Xarelto. It was decided that the risk of systemic anticoagulation likely exceeds the benefit given this life threatening bleed and her history of intracerebral bleeding, so recommendation was made to hold Xarelto for the time being until she can discuss this further with her primary doctor. The patient also suffered transient urinary retention treated wtih asles catheter that resolved. Home Meds Reported Medications Valsartan* (Diovan*) 160 Mg Tablet, 160 MG PO DAILY, TAB 04/20/17 Losartan-Hydrochlorothiazide (Losartan-HCTZ) 100-12.5 Mg Tab, 1 TAB PO DAILY, TAB 04/20/17 Rivaroxaban* (Xarelto*) 20 Mg Tablet, 20 MG PO QHS, TAB 06/22/15 Levetiracetam* (Keppra*) 500 Mg Tablet, 500 MG PO BID, TAB GIVE AT 9AM AND 5PM 06/22/15 Isosorbide Dinitrate* (Isosorbide Dinitrate*) 20 Mg Tablet, 20 MG PO BID, TAB 06/22/15 Memantine* (Namenda*) 10 Mg Tablet, 10 MG PO DAILY, #30 TAB 06/22/15 Discontinued Reported Medications Amlodipine Besylate* (Amlodipine Besylate*) 10 Mg Tablet, 10 MG PO DAILY, #30 TAB 06/22/15 Losartan Potassium* (Losartan Potassium*) 50 Mg Tablet, 50 MG PO DAILY, TAB 06/22/15 Follow-up Plan STOP TAKING XARELTO for the time being as it is likely more risky to take this medicine than to take it. Please follow up with your primary doctor in the clinic for further medical care. Primary Care Provider Not On Staff Doctor Pending Labs Laboratory Tests Test 04/27/17 06:20 White Blood Count 6.610^3/ul (4.8-10.8) Red Blood Count 3.0710^6/ul (4.20-5.40) Hemoglobin 8.8g/dl (12.0-16.0) Hematocrit 28.7% (37.0-47.0) Mean Corpuscular Volume 93.5fl (82.0-101.0) Mean Corpuscular Hemoglobin 28.7pg (29.0-33.0) Mean Corpuscular Hemoglobin Concent 30.7g/dl (32.0-37.0) Red Cell Distribution Width 16.8% (11.5-14.5) Platelet Count 23400^3/UL (140-415) Mean Platelet Volume 10.4fl (7.4-10.4) Neutrophils % 63.2% (39.0-77.0) Lymphocytes % 22.1% (15.0-51.0) Monocytes % 11.0% (0.0-11.0) Eosinophils % 2.9% (0.0-7.0) Basophils % 0.5% (0.0-2.0) Nucleated Red Blood Cells % 0.0/100WBC (0.0-0.0) Neutrophils # 4.210^3/ul (1.6-7.5) Lymphocytes # 1.510^3/ul (0.8-2.9) Monocytes # 0.710^3/ul (0.3-0.9) Eosinophils # 0.210^3/ul (0.0-0.5) Basophils # 0.010^3/ul (0.0-0.1) Nucleated Red Blood Cells # 0.010^3/ul (0.0-0.0) HUMA LEWIS MD Apr 27, 2017 10:01
--- NOTE | 2017-04-27 14:47 | PN ---
Date/Time of Note Date/Time of Note DATE: 04/27/17 TIME: 14:40 Assessment/Plan VTE Prophylaxis VTE Prophylaxis Intervention: SCD's Lines/Catheters IV [facility] Saline Lock Urinary Cath still in place: No (sales removed by day nurse during the day) Assessment/Plan Chief Complaint/Hosp Course Assessment: Anemia- resolved Atrial fibrillation Hypertension Dementia History of CVA Plan: Pending discharge Continue regular diet Small bowel x-ray results - negative Continue IV iron replacement Monitor H&H and transfuse for hemoglobin less than 7.5 Consultation performed in collaboration with Subjective: Patient is asleep in bed. Daughter at the bedside preparing for discharge. On physical exam lungs sound clear to auscultation, abdomen is soft nontender. At this point will sign off and will be available for consultation upon request. PHYSICAL EXAMINATION: GENERAL: Well developed, well nourished, asleep, arousable, oriented, in no acute distress SKIN: No lesions, no stigmata chronic liver disease, no evidence of bleeding diathesis, generalized edema. LYMPHATIC: No palpable lymphadenopathy. HEAD: Normocephalic, atraumatic, no tenderness. EYES: Pupils equal reactive to light and accommodation, full extraocular movements, sclera clear, non-icteric, no discharge. EARS/NOSE AND THROAT: Ears normal, nose normal, oropharynx normal, oral membranes well hydrated without lesions. NECK: Supple, no masses, thyroid normal, JVP within normal limits, carotids normal without bruits. CHEST: Inspection within normal limits. CARDIOVASCULAR: Heart: Regular rate and rhythm, no murmurs, gallops or rubs. Peripheral pulses present within normal limits, no cyanosis, clubbing or edemas. No pulsatile abdominal mass RESPIRATORY: Lungs clear to auscultation and percussion, no wheezing, no rubs GASTROINTESTINAL AND LIVER: Abdomen: Soft, obese. Nontender, non-distended, no hernias, no masses, no organomegaly, no ascites, no guarding, no rebound tenderness, normoactive bowel sounds. Rectal: Deferred. GENITOURINARY: Female genitalia within normal limits. EXTREMITIES: No cyanosis, clubbing or edema. Problems: Exam/Review of Systems Vital Signs Vitals Vital Signs Date Time Temp Pulse Resp B/P Pulse Ox O2 Delivery O2 Flow Rate FiO2 04/27/17 13:56 92 Room Air 12/15/17 13:18 2.0 04/27/17 12:00 87 04/27/17 11:32 98.2 19 156/75 Intake and Output 04/26/17 04/26/17 04/27/17 15:00 23:00 07:00 Intake Total 340 ml 200 ml Balance 340 ml 200 ml Results Result Diagram: 04/27/17 0620 04/26/17 0842 Results 24 hrs Laboratory Tests Test 04/27/17 06:20 White Blood Count 6.6 Red Blood Count 3.07 L Hemoglobin 8.8 L Hematocrit 28.7 L Mean Corpuscular Volume 93.5 Mean Corpuscular Hemoglobin 28.7 L Mean Corpuscular Hemoglobin Concent 30.7 L Red Cell Distribution Width 16.8 H Platelet Count 126 L Mean Platelet Volume 10.4 Neutrophils % 63.2 Lymphocytes % 22.1 Monocytes % 11.0 Eosinophils % 2.9 Basophils % 0.5 Nucleated Red Blood Cells % 0.0 Neutrophils # 4.2 Lymphocytes # 1.5 Monocytes # 0.7 Eosinophils # 0.2 Basophils # 0.0 Nucleated Red Blood Cells # 0.0 Medications Medications Current Medications Ondansetron HCl (Zofran Inj) 4 mg Q6H PRN IV NAUSEA AND/OR VOMITING; Start 04/20/17 at 06:00 Nitroglycerin (Nitroglycerin (Sl Tab) 0.4 Mg) 1 tab Q5M PRN SL CHEST PAIN; Start 04/20/17 at 06:00 Pantoprazole 40 mg 40 mg BID IV Last administered on 04/27/17 09:23; Admin Dose 40 MG; Start 04/20/17 at 17:00 Levetiracetam (Keppra 500 Mg/ 100ml (Pmx)) 100 ml @ 400 mls/hr Q12 IVPB Last administered on 04/27/17 09:23; Admin Dose 400 MLS/HR; Start 04/21/17 at 21:00 Hydralazine HCl 10 mg 10 mg Q4H PRN IV ELEVATED SYSTOLIC BP; Start 04/25/17 at 01:30 Ferric Sodium Gluconate Complex/ Sodium Chloride (Ferrlecit/NS) 110 ml @ 110 mls/hr Q24H IVPB Last administered on 04/26/17 15:19; Admin Dose 110 MLS/HR; Start 04/25/17 at 15:00; Stop 04/29/17 at 15:59 Acetaminophen (Tylenol Liquid) 650 mg Q4H PRN PO PAIN AND OR ELEVATED TEMP Last administered on 04/27/17t 10:56; Admin Dose 650 MG; Start 04/26/17 at 23: 00 Copies To: CC: CT BARNETT MD, ANASTASIA NP Apr 27, 2017 14:47
== END 2017-04-27 16:13 | disposition home or self-care (01) | DRG 378 ==
LOC: E/R 20:38 → TEL 04-20 03:00
PROVIDERS: ADMIT Internal Medicine; ATTEND Internal Medicine
PROC: 30233L1 Transfusion of Nonautologous Fresh Plasma into Peripheral Vein, Percutaneous Approach (ICD-10-PCS; principal; 2017-04-20)
PROC: 30233N1 Transfusion of Nonautologous Red Blood Cells into Peripheral Vein, Percutaneous Approach (ICD-10-PCS; 2017-04-20)
PROC: 0DB68ZX Excision of Stomach, Via Natural or Artificial Opening Endoscopic, Diagnostic (ICD-10-PCS; 2017-04-21)
PROC: 0T9B70Z Drainage of Bladder with Drainage Device, Via Natural or Artificial Opening (ICD-10-PCS; 2017-04-21)
PROC: 0DJD8ZZ Inspection of Lower Intestinal Tract, Via Natural or Artificial Opening Endoscopic (ICD-10-PCS; 2017-04-23)
DX: K92.2 Gastrointestinal hemorrhage, unspecified (principal); D62 Acute posthemorrhagic anemia; R56.9 Unspecified convulsions; F03.90 Unspecified dementia, unspecified severity, without behavioral disturbance, psychotic disturbance, mood disturbance, and anxiety; I48.91 Unspecified atrial fibrillation; N31.9 Neuromuscular dysfunction of bladder, unspecified; I10 Essential (primary) hypertension; K20.9 Esophagitis, unspecified; K64.8 Other hemorrhoids; K29.70 Gastritis, unspecified, without bleeding; Z86.73 Personal history of transient ischemic attack (TIA), and cerebral infarction without residual deficits; Z79.01 Long term (current) use of anticoagulants; Z90.49 Acquired absence of other specified parts of digestive tract; K59.00 Constipation, unspecified; R33.9 Retention of urine, unspecified
CPT/HCPCS: 36415; 36430; 36600; 71010; 74176; 74250; 80048; 80053; 82728; 82803; 83540; 83735; 83880; 84100; 84484; 85014; 85018; 85025; 85610; 85730; 86850; 86900; 86901; 86920; 88305; 88312; 90686; 93005; 94640; 94664; 97110; 97162; 97530; C9113; J1953; J2250; J2916; J7042; P9016; P9059; Q9967